=== PATIENT | female | born 1940 | race Caucasian/White ===

== ENCOUNTER 2018-10-21 06:42 | Day surgery (SDC) | payer MEDICARE, BC ==
[~2018-10-21 06:42] MED LIST: Lactated Ringers 1,000 ML IV SCH; Lidocaine 1%/Sod Bicarbonate in NS 8.4% 1 ML Syringe IDERM PRN; Sodium Chloride 0.9% 10 ML Syringe FLUSH PRN
[2018-10-21] MEDS ORDERED: Lidocaine 1% 30 ML SDV ONE (07:26)
[2018-10-21] MEDS ORDERED: Bupivacaine 0.25% 30 ML SDV ONE (07:26)
[2018-10-21] MEDS ORDERED: ceFAZolin 1 GM Vial ONE (07:26)
[2018-10-21 09:42] VITALS: BP 119/44
--- NOTE | 2018-10-26 07:42 | PCM.OPNOTE ---
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
--- NOTE | 2018-10-26 08:01 | OR ---
DATE OF OPERATION: 10/21/2018 SURGEON: Benny Olivas MD OPERATION PERFORMED: Left carpal tunnel release. PREOPERATIVE DIAGNOSIS: Left wrist median nerve compression neuropathy. POSTOPERATIVE DIAGNOSIS: Left wrist median nerve compression neuropathy. ANESTHESIA: Local only. ANESTHESIA PROVIDER: None. FINAL INSPECTOR TRUCK TRAILER: Thais Nunez PA-C ESTIMATED BLOOD LOSS: Less than 5 mL. COMPLICATIONS: None. CONDITION: Stable. DESCRIPTION OF PROCEDURE: The patient was identified in the preop holding area. Proper site was marked and identified by the surgeon. The patient was taken back to the operating theater where after adequate anesthesia, the patient's left upper extremity was sterilely prepped and draped in the usual sterile fashion. OR time-out was performed. The patient did not receive antibiotics and it is not indicated for soft tissue hand procedure. At this time, the left upper extremity was exsanguinated and an Esmarch was used as a tourniquet on the forearm. At this time, using 1% lidocaine without epinephrine and 0.25% Marcaine without epinephrine, the palmar cutaneous branch of the median nerve was anesthetized and then the incisional site was anesthetized using Kerr cardinal line and ulnar border of the fourth digit as reference. Once this had set up, an incision was made. Blunt dissection was taken down to the palmar cutaneous fascia. Palmar cutaneous fascia was incised with a [place] blade. At this time, the transverse carpal ligament was identified. A small rent was made in the transverse carpal ligament with a [place] blade under direct visualization. Resection of the transverse carpal ligament was done distally using tenotomy scissors making sure to stop short of the palmar arch. At this time, attention was turned proximally after it was found to be adequately released. Using the tenotomy scissors keeping the tips ulnar to protect the palmar cutaneous branch of the median nerve, the superficial forearm fascia as well as the transverse carpal ligament were resected proximally. It was found to be adequate release both proximally and distally. At this time, adequate saline was irrigated through the wound. 4-0 nylon sutures were used closure of the skin. The patient was placed in a sterile soft dressing and sent to PACU in stable condition. MMODAL /[id number]
== END 2018-10-21 09:25 | disposition home or self-care (01) ==
LOC: JD.SDS 06:42
PROVIDERS: ATTEND Orthopaedic Surgery
DX: G56.02 Carpal tunnel syndrome, left upper limb (principal); I10 Essential (primary) hypertension; I49.9 Cardiac arrhythmia, unspecified; I51.89 Other ill-defined heart diseases; I49.3 Ventricular premature depolarization; E78.00 Pure hypercholesterolemia, unspecified; Z79.899 Other long term (current) drug therapy; Z98.890 Other specified postprocedural states
CPT/HCPCS: 64721; 87641; J0690; J2001; J3490; J7120

== ENCOUNTER 2020-09-04 05:01 | Inpatient (IN) | payer MEDICARE, BC ==
[2020-09-04] MEDS ORDERED: Sodium Chloride 0.9% 10 ML Syringe FLUSH PRN (05:06)
[2020-09-04] MEDS ORDERED: HYDROmorphone 0.5 MG/0.5 ML Syringe IVPUSH ONE ×2 (05:13→07:08)
--- NOTE | 2020-09-04 05:13 | EDM.PDOC ---
ED HPI GENERAL MEDICAL PROBLEM - General Chief Complaint: Lower Extremity Injury/Pain Stated Complaint: [facility] Time Seen by Provider: 09/04/20 05:05 Source of Information: Reports: Patient, EMS History Limitations: Reports: No Limitations - History of Present Illness INITIAL COMMENTS - FREE TEXT/NARRATIVE: The patient presents by [facility] for a fall. She said this morning she got up to go to the bathroom and she tripped and fell and hit her head. She had no LOC. She does have a slight headache with a bump to the back of her head. She has pain to the left hip and her leg is shortened and externally rotated. She has no chest pain, shortness of breath, abdominal pain, nausea or vomiting. She has a history of hypertension. She is not on any blood thinners. Onset: Sudden Duration: Minutes: Location: Reports: Head, Lower Extremity, Left Quality: Reports: Sharp Severity: Moderate Improves with: Reports: Immobilization Worsens with: Reports: Movement Context: Reports: Trauma (tripped and fell) Associated Symptoms: Reports: Headaches. Denies: Chest Pain, Cough, Fever/Chills, Nausea/Vomiting, Shortness of Breath Left Hip Pain Score (Numeric/FACES): 4 - Related Data Allergies Allergy/AdvReac Type Severity Reaction Status Date / Time No Known Allergies Allergy Verified 09/04/20 05:05 Home Meds: Home Meds Bisoprolol/Hydrochlorothiazide [Ziac 5-6.25 MG] 1 tab PO DAILY 05/22/16 [History] Simvastatin 10 mg PO DAILY 05/22/16 [History] Past Medical History HEENT History: Reports: Impaired Vision Other HEENT History: Wears glasses Cardiovascular History: Reports: High Cholesterol, Hypertension, Other (See Below) Other Cardiovascular History: diastolic dysfunction, irregular cardiac rhythm, pvcs, varicose vein surgery Respiratory History: Reports: None Gastrointestinal History: Reports: None Genitourinary History: Reports: None MEMORIAL COUNSELOR History: Reports: None Neurological History: Reports: None Psychiatric History: Reports: None Endocrine/Metabolic History: Reports: None Hematologic History: Reports: None Immunologic History: Reports: None Oncologic (Cancer) History: Reports: None Dermatologic History: Reports: Other (See Below) Other Dermatologic History: facial rash - Past Surgical History Cardiovascular Surgical History: Reports: Varicose Neurological Surgical History: Reports: None Musculoskeletal Surgical History: Reports: Carpal Tunnel, Knee Replacement Dermatological Surgical History: Reports: None Social & Family History - Tobacco Use Tobacco Use Status *Q: Never Tobacco User - Caffeine Use Caffeine Use: Reports: Coffee, Tea - Recreational Drug Use Recreational Drug Use: No Review of Systems - Review of Systems Review Of Systems: See Below Constitutional: Reports: No Symptoms Eyes: Reports: No Symptoms Ears: Reports: No Symptoms Nose: Reports: No Symptoms Mouth/Throat: Reports: No Symptoms Respiratory: Reports: No Symptoms Cardiovascular: Reports: No Symptoms GI/Abdominal: Reports: No Symptoms Musculoskeletal: Reports: Other (Left hip pain) Neurological: Reports: Headache ED EXAM, GENERAL - Physical Exam Exam: See Below Exam Limited By: No Limitations General Appearance: Alert, No Apparent Distress Ears: Normal External Exam Nose: Normal Inspection Head: Other (Pain upon palpation with edema to the back of her head) Neck: Normal Inspection, Supple, Non-Tender Respiratory/Chest: No Respiratory Distress, Lungs Clear, Normal Breath Sounds Cardiovascular: Regular Rate, Rhythm, No Edema, No Murmur GI/Abdominal: Soft, Non-Tender, No Organomegaly, No Mass Extremities: Other (Pain upon palpation to the left hip and her leg is shortened and externally rotated. She has good sensation and pulses distally.) #1 Interpretation EKG Date: 09/04/20 Time: 05:16 Rhythm: NSR Rate (Beats/Min): 81 [place]: Normal P-Wave: Present QRS: Normal ST-T: Normal QT: Normal EKG Interpretation Comments: Ventricular bigeminy Course - Vital Signs Last Recorded V/S: Last Vital Signs Temp 97.1 F 09/04/20 05:04 Pulse 77 09/04/20 05:04 Resp 17 09/04/20 05:04 BP 193/82 H 09/04/20 05:04 Pulse Ox 97 09/04/20 05:04 - Orders/Labs/Meds Orders: Active Orders 24 hr Category Date Time Status Cardiac Monitoring [RC] . DIRECTED Care 09/04/20 05:06 Active EKG Documentation Completion [RC] STAT Care 09/04/20 05:07 Active Notify Provider Consults [RC] ASDIRECTED Care 09/04/20 06:43 Active Peripheral IV Care [RC] . DIRECTED Care 09/04/20 05:07 Active Consult to Physician [CONS] Stat Cons 09/04/20 06:42 Active Sodium Chloride 0.9% [Saline Flush] Med 09/04/20 05:06 Active 10 ml FLUSH ASDIRECTED PRN Peripheral IV Insertion Adult [OM.PC] Stat Oth 09/04/20 05:06 Ordered Medication Orders Sodium Chloride (Saline Flush) 10 ml FLUSH ASDIRECTED PRN PRN Reason: Keep Vein Open Last Admin: 09/04/20 05:24 Dose: 10 ml Documented by: IGOR Labs: Laboratory Tests 09/04/20 09/04/20 09/04/20 Range/Units 05:15 05:30 05:30 WBC 13.33 H (3.98-10.04) K/mm3 RBC 4.82 (3.98-5.22) M/mm3 Hgb 14.1 (11.2-15.7) gm/dl Hct 43.5 (34.1-44.9) % MCV 90.2 (79.4-94.8) fl MCH 29.3 (25.6-32.2) pg MCHC 32.4 (32.2-35.5) g/dl RDW Std Deviation 45.8 (36.4-46.3) fL Plt Count 196 (182-369) K/mm3 MPV 10.5 (9.4-12.3) fl Neut % (Auto) 80.2 H (34.0-71.1) % Lymph % (Auto) 10.3 L (19.3-51.7) % [place] % (Auto) 8.0 (4.7-12.5) % Eos % (Auto) 1.1 (0.7-5.8) Baso % (Auto) 0.2 (0.1-1.2) % Neut # (Auto) 10.70 H (1.56-6.13) K/mm3 Lymph # (Auto) 1.37 (1.18-3.74) K/mm3 [place] # (Auto) 1.06 H (0.24-0.36) K/mm3 Eos # (Auto) 0.14 (0.04-0.36) K/mm3 Baso # (Auto) 0.03 (0.01-0.08) K/mm3 Manual Slide Review Normal smear PT (9.7-12.0) SECONDS INR APTT (21.7-31.4) SECONDS Sodium 141 (136-145) mEq/L Potassium 4.0 (3.5-5.1) mEq/L Chloride 102 (98-107) mEq/L Carbon Dioxide 25 (21-32) mEq/L Anion Gap 18.0 H (5-15) BUN 22 H (7-18) mg/dL Creatinine 0.8 (0.55-1.02) mg/dL Est Cr Clr Drug Dosing 41.62 mL/min Estimated GFR (MDRD) > 60 (>60) mL/min BUN/Creatinine Ratio 27.5 H (14-18) Glucose 121 H (83-115) mg/dL Calcium 8.9 (8.5-10.1) mg/dL Total Bilirubin 0.4 (0.2-1.0) mg/dL AST 21 (15-37) U/L ALT 25 (14-59) U/L Alkaline Phosphatase 107 (46-116) U/L Troponin I < 0.017 (0.00-0.056) ng/mL Total Protein 7.0 (6.4-8.2) g/dl Albumin 3.4 (3.4-5.0) g/dl Globulin 3.6 gm/dL Albumin/Globulin Ratio 0.9 L (1-2) SARS-CoV-2 RNA (VILMA) Negative (NEGATIVE) 09/04/20 Range/Units 05:30 WBC (3.98-10.04) K/mm3 RBC (3.98-5.22) M/mm3 Hgb (11.2-15.7) gm/dl Hct (34.1-44.9) % MCV (79.4-94.8) fl MCH (25.6-32.2) pg MCHC (32.2-35.5) g/dl RDW Std Deviation (36.4-46.3) fL Plt Count (182-369) K/mm3 MPV (9.4-12.3) fl Neut % (Auto) (34.0-71.1) % Lymph % (Auto) (19.3-51.7) % [place] % (Auto) (4.7-12.5) % Eos % (Auto) (0.7-5.8) Baso % (Auto) (0.1-1.2) % Neut # (Auto) (1.56-6.13) K/mm3 Lymph # (Auto) (1.18-3.74) K/mm3 [place] # (Auto) (0.24-0.36) K/mm3 Eos # (Auto) (0.04-0.36) K/mm3 Baso # (Auto) (0.01-0.08) K/mm3 Manual Slide Review PT 10.9 (9.7-12.0) SECONDS INR 1.02 APTT 24.7 (21.7-31.4) SECONDS Sodium (136-145) mEq/L Potassium (3.5-5.1) mEq/L Chloride (98-107) mEq/L Carbon Dioxide (21-32) mEq/L Anion Gap (5-15) BUN (7-18) mg/dL Creatinine (0.55-1.02) mg/dL Est Cr Clr Drug Dosing mL/min Estimated GFR (MDRD) (>60) mL/min BUN/Creatinine Ratio (14-18) Glucose (83-115) mg/dL Calcium (8.5-10.1) mg/dL Total Bilirubin (0.2-1.0) mg/dL AST (15-37) U/L ALT (14-59) U/L Alkaline Phosphatase (46-116) U/L Troponin I (0.00-0.056) ng/mL Total Protein (6.4-8.2) g/dl Albumin (3.4-5.0) g/dl Globulin gm/dL Albumin/Globulin Ratio (1-2) SARS-CoV-2 RNA (VILMA) (NEGATIVE) Meds: Medications Generic Name Dose Route Start Last Admin Trade Name Freq PRN Reason Stop Dose Admin Sodium Chloride 10 ml 09/04/20 05:06 09/04/20 05:24 Saline Flush FLUSH 10 ml ASDIRECTED PRN Administration Keep Vein Open Discontinued Medications Generic Name Dose Route Start Last Admin Trade Name Freq PRN Reason Stop Dose Admin Hydromorphone HCl 0.5 mg 09/04/20 05:13 09/04/20 05:23 Dilaudid IVPUSH 09/04/20 05:14 0.5 mg ONETIME ONE Administration Hydromorphone HCl 0.5 mg 09/04/20 07:08 09/04/20 07:14 Dilaudid IVPUSH 09/04/20 07:09 0.5 mg ONETIME ONE Administration - Re-Assessments/Exams Free Text/Narrative Re-Assessment/Exam: 09/04/20 05:13 I ordered an IV saline lock, dilaudid 0.5mg IV, EKG, CT of her head, labs and an x-ray of her left hip with pelvis. 09/04/20 06:35 Her WBC was elevated at 13.33. Her anion gap was a little elevated at 18. Her BUN was elevated at 22. Her troponin was negative. Her COVID [address] of her head shows chronic age related changes but no evidence of acute intracranial pathology. The x-ray of her hip and pelvis shows an intertrochanteric fracture. I have called Dr Olivas. He asked if we could admit to the hospitalist service with him on consult. 09/04/20 07:[address] Ramírez and he agreed to the admission. Departure - Departure Time of Disposition: 07:20 Disposition: Admitted As Inpatient 65 Condition: Fair Clinical Impression: Frequent PVCs Fall Qualifiers: Encounter type: initial encounter Qualified Code(s): W19.XXXA - Unspecified fall, initial encounter Hip fracture, left Qualifiers: Encounter type: initial encounter Fracture type: closed Qualified Code(s): S72.002A - Fracture of unspecified part of neck of left femur, initial encounter for closed fracture Contusion of head Qualifiers: Encounter type: initial encounter Contusion of head detail: scalp Qualified Code(s): S00.03XA - Contusion of scalp, initial encounter - Discharge Information Referrals: PCP,Unknown [Ordering Only Provider] - Forms: ED Department Discharge Sepsis Event Note (ED) - Evaluation Sepsis Screening Result: No Definite Risk - Focused Exam Vital Signs: Vital Signs Temp Pulse Resp BP Pulse Ox 09/04/20 05:04 97.1 F 77 17 193/82 H 97 - My Orders Last 24 Hours: My Active Orders 09/04/20 05:06 Cardiac Monitoring [RC] . DIRECTED Sodium Chloride 0.9% [Saline Flush] 10 ml FLUSH ASDIRECTED PRN Peripheral IV Insertion Adult [OM.PC] Stat 09/04/20 05:07 EKG Documentation Completion [RC] STAT Peripheral IV Care [RC] . DIRECTED 09/04/20 06:42 Consult to Physician [CONS] Stat 09/04/20 06:43 Notify Provider Consults [RC] ASDIRECTED - Assessment/Plan Last 24 Hours: My Active Orders 09/04/20 05:06 Cardiac Monitoring [RC] . DIRECTED Sodium Chloride 0.9% [Saline Flush] 10 ml FLUSH ASDIRECTED PRN Peripheral IV Insertion Adult [OM.PC] Stat 09/04/20 05:07 EKG Documentation Completion [RC] STAT Peripheral IV Care [RC] . DIRECTED 09/04/20 06:42 Consult to Physician [CONS] Stat 09/04/20 06:43 Notify Provider Consults [RC] ASDIRECTED
--- NOTE | 2020-09-04 06:51 | CT ---
Head CT Technique: Multiple axial sections through the brain were obtained. Intravenous contrast was not utilized. Reconstructed coronal and sagittal images were obtained. Comparison: No prior intracranial imaging is available. Findings: Ventricles along with basal cisterns and sulci over the convexities are mildly prominent. Decreased density is noted within the periventricular and subcortical white matter which is felt compatible with small vessel ischemic demyelination change. 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 No other abnormal parenchymal densities are seen. No evidence of intracranial hemorrhage. No midline shift or mass-effect is appreciated. Atherosclerotic calcification is seen within the vertebral vessels and within the carotid siphon. Visualized mastoid sinuses and visualized paranasal sinuses showed nothing acute. No acute calvarial finding is appreciated. Impression: 1. Senescent change as noted above. 2. Nothing acute is appreciated on noncontrast head CT exam. Diagnostic code #2 I agree with preliminary report from [facility], finalized on 09/04/20, 7:21 AM EDUCATION RESEARCH ANALYST
--- NOTE | 2020-09-04 06:51 | CR ---
Pelvis and left hip: AP view of the pelvis was obtained as well as AP and crosstable lateral views of the left hip. Severe joint space narrowing is noted within both hips. Slight cystic change is noted around both hips. Osteophytes are noted off of both femoral heads. Osteopenia is present. Acute intertrochanteric fracture is noted within the left hip with mild angulation. No additional fracture or other bony abnormality is appreciated. Impression: 1. Severe degenerative change within both hips. 2. Acute and mildly angulated intertrochanteric fracture within the left hip. Diagnostic code #5
--- NOTE | 2020-09-04 07:23 | PCM.HP.2 ---
H&P History of Present Illness - General Date of Service: 09/04/20 Source of Information: Patient, Old Records, Provider, RN, RN Notes Reviewed History Limitations: Reports: No Limitations - History of Present Illness Initial Comments - Free Text/Narative: This is an 80-year-old female who presents to ED on the morning of 09/04/2020 via [facility] after a fall. She had up to use the restroom and fell hitting her head. Denies any loss of consciousness or neck pain but she does have a slight headache and a bump on the right occipital region of her head. She has pain to her left hip and left leg is noted to be externally rotated and shortened. Denies any chest pain, shortness of breath, lia pain, nausea, vomiting. She is on a baby aspirin. She reports she lives alone at home in [place]. She does have several children but [facility]. She is quite active and does work at [employer]. Twelve-lead EKG is obtained showing a sinus rhythm at 81 bpm with ventricular bigeminy. Temp is 97.1. Pulse 77. Respirations 17. Blood pressure elevated at 193/82. Pulse ox 97%. Labs are obtained showing leukocytosis at 13.33. Hemoglobin is 14.1. Platelets are 196. Neutrophils are elevated at 10.70. Sodium is 141. Potassium 4.0. Chloride 102. Carbon oxide 25. Anion gap 18.0. BUN is 22. Creatinine 0.8. GFR greater than 60. Glucose 121. Bilirubin 0.4. AST is 21, ALT 25, alkaline phosphatase 107. Troponin is less than 0.017. Albumin is 3.4. INR is 1.02. SARS-CoV-2 RNA is negative. She is given Dilaudid for pain. Head CT without contrast was obtained showing senescent cotter ge but nothing acute. Left hip x-rays obtained showing severe degenerative change within both hips. Acute and mildly angulated intertrochanteric fracture within the left hip is noted. Dr. Olivas, orthopedic surgeon is contacted by the ED provider and plan is for surgical fixation in the next 1 to 2 days. She carries a history of hypertension and hyperlipidemia. She has had her left knee replaced. Primary care provider is Dr. Machado. She subsequent admitted to the medical surgical floor inpatient on telemetry for pain management and planned surgical fixation of her left hip fracture. Left Hip Pain Score (Numeric/FACES): 4 - Related Data Allergies/Adverse Reactions: Allergies Allergy/AdvReac Type Severity Reaction Status Date / Time No Known Allergies Allergy Verified 09/04/20 05:05 Home Medications: Home Meds Bisoprolol/Hydrochlorothiazide [Ziac 5-6.25 MG] 1 tab PO DAILY 05/22/16 [History] Simvastatin 10 mg PO DAILY 05/22/16 [History] Past Medical History HEENT History: Reports: Impaired Vision Other HEENT History: Wears glasses Cardiovascular History: Reports: High Cholesterol, Hypertension, Other (See Below) Other Cardiovascular History: diastolic dysfunction, irregular cardiac rhythm, pvcs, varicose vein surgery Respiratory History: Reports: None Gastrointestinal History: Reports: None Genitourinary History: Reports: None ACREAGE REPORTER History: Reports: None Neurological History: Reports: None Psychiatric History: Reports: None Endocrine/Metabolic History: Reports: None Hematologic History: Reports: None Immunologic History: Reports: None Oncologic (Cancer) History: Reports: None Dermatologic History: Reports: Other (See Below) Other Dermatologic History: facial rash - Past Surgical History Cardiovascular Surgical History: Reports: Varicose Neurological Surgical History: Reports: None Musculoskeletal Surgical History: Reports: Carpal Tunnel, Knee Replacement Dermatological Surgical History: Reports: None Social & Family History - Tobacco Use Tobacco Use Status *Q: Never Tobacco User - Caffeine Use Caffeine Use: Reports: Coffee, Tea - Recreational Drug Use Recreational Drug Use: No H&P Review of Systems - Review of Systems: Review Of Systems: See Below General: Reports: No Symptoms. Denies: Fever, Chills, Malaise, Weakness, Fatigue HEENT: Reports: Other (Reports dry mouth; Reports prior swelling and pain to right occipatl region which has since resoleved). Denies: Headaches, Sore Throat Pulmonary: Reports: No Symptoms. Denies: Shortness of Breath, Wheezing, Pleuritic Chest Pain, Cough, Sputum Cardiovascular: Reports: No Symptoms. Denies: Chest Pain, Palpitations, Dyspnea on Exertion, Edema Gastrointestinal: Reports: No Symptoms. Denies: Abdominal Pain, Constipation, Diarrhea, Nausea, Vomiting Genitourinary: Reports: No Symptoms. Denies: Pain Musculoskeletal: Reports: Joint Pain (left hip ). Denies: Neck Pain, Shoulder Pain, Back Pain, Leg Pain, Foot Pain Skin: Reports: No Symptoms. Denies: Cyanosis Psychiatric: Reports: No Symptoms. Denies: Confusion Neurological: Reports: Difficulty Walking, Gait Disturbance. Denies: Dizziness, Headache, Numbness, Pre-Existing Deficit, Seizure, Syncope, Tingling, Trouble Speaking Hematologic/Lymphatic: Reports: No Symptoms. Denies: Anemia, Easy Bleeding Immunologic: Reports: No Symptoms Exam - Exam Exam: See Below - Vital Signs Vital Signs: Last Vital Signs Temp 97.1 F 09/04/20 05:04 Pulse 77 09/04/20 05:04 Resp 17 09/04/20 05:04 BP 193/82 H 09/04/20 05:04 Pulse Ox 97 09/04/20 05:04 Weight: 132 lb - Exam Quality Assessment: DVT Prophylaxis. No: Supplemental Oxygen, Urinary Catheter General: Alert, Oriented, Cooperative. No: Mild Distress HEENT: Conjunctiva Clear, EACs Clear, Posterior Pharynx Clear, Other. No: Mucosa Moist & [place] (mildly dry mouth ) Neck: Supple, Trachea Midline Lungs: Clear to Auscultation, Normal Respiratory Effort Cardiovascular: Regular Rate, Irregular Rhythm (Frequent PVCs ) GI/Abdominal Exam: Normal Bowel Sounds, Soft, Non-Tender, No Distention (Female) Exam: Deferred Rectal (Female) Exam: Deferred Extremities: No Pedal Edema, Normal Capillary Refill, Leg Pain (Left hip with m ovement ), Limited Range of Motion (left hip) Peripheral Pulses: 2+: Radial (L), Radial (R), Dorsalis Pedis (L), Dorsalis Pedis (R) Skin: Warm, Dry, Intact Neurological: Cranial Nerves Intact (Grossly) Neuro Extensive - Mental Status: Alert, Oriented x3, Normal Mood/Affect - Patient Data Lab Results Last 24 hrs: Laboratory Results - last 24 hr 09/04/20 09/04/20 09/04/20 Range/Units 05:15 05:30 05:30 WBC 13.33 H (3.98-10.04) K/mm3 RBC 4.82 (3.98-5.22) M/mm3 Hgb 14.1 (11.2-15.7) gm/dl Hct 43.5 (34.1-44.9) % MCV 90.2 (79.4-94.8) fl MCH 29.3 (25.6-32.2) pg MCHC 32.4 (32.2-35.5) g/dl RDW Std Deviation 45.8 (36.4-46.3) fL Plt Count 196 (182-369) K/mm3 MPV 10.5 (9.4-12.3) fl Neut % (Auto) 80.2 H (34.0-71.1) % Lymph % (Auto) 10.3 L (19.3-51.7) % [place] % (Auto) 8.0 (4.7-12.5) % Eos % (Auto) 1.1 (0.7-5.8) Baso % (Auto) 0.2 (0.1-1.2) % Neut # (Auto) 10.70 H (1.56-6.13) K/mm3 Lymph # (Auto) 1.37 (1.18-3.74) K/mm3 [place] # (Auto) 1.06 H (0.24-0.36) K/mm3 Eos # (Auto) 0.14 (0.04-0.36) K/mm3 Baso # (Auto) 0.03 (0.01-0.08) K/mm3 Manual Slide Review Normal smear PT (9.7-12.0) SECONDS INR APTT (21.7-31.4) SECONDS Sodium 141 (136-145) mEq/L Potassium 4.0 (3.5-5.1) mEq/L Chloride 102 (98-107) mEq/L Carbon Dioxide 25 (21-32) mEq/L Anion Gap 18.0 H (5-15) BUN 22 H (7-18) mg/dL Creatinine 0.8 (0.55-1.02) mg/dL Est Cr Clr Drug Dosing 41.62 mL/min Estimated GFR (MDRD) > 60 (>60) mL/min BUN/Creatinine Ratio 27.5 H (14-18) Glucose 121 H (83-115) mg/dL Calcium 8.9 (8.5-10.1) mg/dL Total Bilirubin 0.4 (0.2-1.0) mg/dL AST 21 (15-37) U/L ALT 25 (14-59) U/L Alkaline Phosphatase 107 (46-116) U/L Troponin I < 0.017 (0.00-0.056) ng/mL Total Protein 7.0 (6.4-8.2) g/dl Albumin 3.4 (3.4-5.0) g/dl Globulin 3.6 gm/dL Albumin/Globulin Ratio 0.9 L (1-2) SARS-CoV-2 RNA (VILMA) Negative (NEGATIVE) 09/04/20 Range/Units 05:30 WBC (3.98-10.04) K/mm3 RBC (3.98-5.22) M/mm3 Hgb (11.2-15.7) gm/dl Hct (34.1-44.9) % MCV (79.4-94.8) fl MCH (25.6-32.2) pg MCHC (32.2-35.5) g/dl RDW Std Deviation (36.4-46.3) fL Plt Count (182-369) K/mm3 MPV (9.4-12.3) fl Neut % (Auto) (34.0-71.1) % Lymph % (Auto) (19.3-51.7) % [place] % (Auto) (4.7-12.5) % Eos % (Auto) (0.7-5.8) Baso % (Auto) (0.1-1.2) % Neut # (Auto) (1.56-6.13) K/mm3 Lymph # (Auto) (1.18-3.74) K/mm3 [place] # (Auto) (0.24-0.36) K/mm3 Eos # (Auto) (0.04-0.36) K/mm3 Baso # (Auto) (0.01-0.08) K/mm3 Manual Slide Review PT 10.9 (9.7-12.0) SECONDS INR 1.02 APTT 24.7 (21.7-31.4) SECONDS Sodium (136-145) mEq/L Potassium (3.5-5.1) mEq/L Chloride (98-107) mEq/L Carbon Dioxide (21-32) mEq/L Anion Gap (5-15) BUN (7-18) mg/dL Creatinine (0.55-1.02) mg/dL Est Cr Clr Drug Dosing mL/min Estimated GFR (MDRD) (>60) mL/min BUN/Creatinine Ratio (14-18) Glucose (83-115) mg/dL Calcium (8.5-10.1) mg/dL Total Bilirubin (0.2-1.0) mg/dL AST (15-37) U/L ALT (14-59) U/L Alkaline Phosphatase (46-116) U/L Troponin I (0.00-0.056) ng/mL Total Protein (6.4-8.2) g/dl Albumin (3.4-5.0) g/dl Globulin gm/dL Albumin/Globulin Ratio (1-2) SARS-CoV-2 RNA (VILMA) (NEGATIVE) Result Diagrams: 09/04/20 05:30 09/04/20 05:30 Sepsis Event Note - Evaluation Sepsis Screening Result: No Definite Risk - Focused Exam Vital Signs: Vital Signs Temp Pulse Resp BP Pulse Ox 09/04/20 05:04 97.1 F 77 17 193/82 H 97 - Problem List (1) Fall SNOMED Code(s): 9689621, 733624770 ICD Code: W19.XXXA - UNSPECIFIED FALL, INITIAL ENCOUNTER Status: Acute Priority: High Current Visit: Yes Qualifiers: Encounter type: initial encounter Qualified Code(s): W19.XXXA - Unspecified fall, initial encounter (2) Hip fracture, left SNOMED Code(s): 554278209, [id number] ICD Code: S72.002A - FRACTURE OF UNSP PART OF NECK OF LEFT FEMUR, INIT Status: Acute Priority: High Current Visit: Yes Qualifiers: Encounter type: initial encounter Fracture type: closed Qualified Code(s): S72.002A - Fracture of unspecified part of neck of left femur, initial encounter for closed fracture (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: I49.3 - VENTRICULAR PREMATURE DEPOLARIZATION Status: Chronic Priority: Medium Current Visit: Yes (4) Contusion of head SNOMED Code(s): 406343420 ICD Code: S00.93XA - CONTUSION OF UNSPECIFIED PART OF HEAD, INITIAL ENCOUNTER Status: Acute Priority: High Current Visit: Yes Qualifiers: Encounter type: initial encounter Contusion of head detail: scalp Qualified Code(s): S00.03XA - Contusion of scalp, initial encounter (5) HTN (hypertension) SNOMED Code(s): 10498167 ICD Code: I10 - ESSENTIAL (PRIMARY) HYPERTENSION Status: Chronic Priority: Medium Current Visit: No Qualifiers: Hypertension type: unspecified Qualified Code(s): I10 - Essential (primary) hypertension (6) HLD (hyperlipidemia) SNOMED Code(s): 45490114 ICD Code: E78.5 - HYPERLIPIDEMIA, UNSPECIFIED Status: Chronic Priority: Low Current Visit: No Qualifiers: Hyperlipidemia type: unspecified Qualified Code(s): E78.5 - Hyperlipidemia, unspecified (7) Diastolic dysfunction SNOMED Code(s): 2145185 ICD Code: I51.89 - OTHER ILL-DEFINED HEART DISEASES Status: Chronic Priority: Medium Current Visit: Yes Problem List Initiated/Reviewed/Updated: Yes Orders Last 24hrs: Active Orders 24 hr Category Date Time Status Cardiac Monitoring [RC] . DIRECTED Care 09/04/20 05:06 Active EKG Documentation Completion [RC] STAT Care 09/04/20 05:07 Active Notify Provider Consults [RC] ASDIRECTED Care 09/04/20 06:43 Active Peripheral IV Care [RC] . DIRECTED Care 09/04/20 05:07 Active Consult to Physician [CONS] Stat Cons 09/04/20 06:42 Active Sodium Chloride 0.9% [Saline Flush] Med 09/04/20 05:06 Active 10 ml FLUSH ASDIRECTED PRN Peripheral IV Insertion Adult [OM.PC] Stat Oth 09/04/20 05:06 Ordered Medication Orders Sodium Chloride (Saline Flush) 10 ml FLUSH ASDIRECTED PRN PRN Reason: Keep Vein Open Last Admin: 09/04/20 05:24 Dose: 10 ml Documented by: IGOR Assessment/Plan Comment:: Assessment - day of admission - 09/04/20 * 80-year-old female presents to ED after fall at home * Patient reports she tripped while going to the restroom at night * Patient lives alone in her home and has no family in the state * Reports she did hit her head but denies loss of consciousness * Notes pain and edema in right occipital region in ED; resolved prior to admission * Noted to have left leg pain and leg is externally rotated and shortened. * Is on a baby aspirin at night but no other blood thinners * History of HLD, HTN, diastolic dysfunction, frequent PVCs * Twelve-lead EKG in ED shows sinus rhythm at 81 bpm with no signs of ischemia however ventricular bigeminy is noted * Labs in ED: * WBC 13.33 * Hemoglobin 14.1 * Platelet 196 * Neutrophils elevated at 10.70 * Sodium 141 * Potassium 4.0 * Anion gap 18.0 * BUN 22, creatinine 0.8, GFR greater than 60 * Glucose 121 * Bilirubin 0.4 * AST 21, ALT 25, alkaline phosphatase 107 * Troponin less than 0.017 * Albumin 3.4 * INR 1.02 * SARS-CoV-2 RNA negative * Head CT obtained in ED shows senescent change but nothing acute. * Left hip x-ray obtained in ED shows severe degenerative change within both hips and acute and mildly angulated intertrochanteric fracture within the left hip * She is given Dilaudid for pain * Dr. Olivas, orthopedic surgeon, consulted by ED provider * Admitted to medical floor for pain management and planned surgical fixation of left hip fracture; Hopeful for surgery on 09/05/20. PLAN: Fall Hip fracture, left Contusion of head * Routine labs * Check TSH * Chest X-ray given history of diastolic dysfunction * Obtain old records * Consult Dr. Olivas * SCDs and heparin for now * Famotidine daily * PT/OT after surgery * PRN colace * Pain medications as ordered * CM/SW * IS * Bedrest for now * NPO at midnight * IV fluids as ordered * Based on the data provided patient is low to moderate surgical risk Frequent PVCs HTN (hypertension) HLD (hyperlipidemia) Diastolic dysfunction * Resume/reconcile home medications once available * Telemetry * Obtain old records PCP: Dr. Machado Code status: Full code DVT prophylaxis: SCDs/Heparin - will switch to PO blood thinner post surgically Social: Patient lives at home alone. Has no family in the state Disposition: Patient admitted to [facility] with telemetry for surgical management of left hip fracture. Anticipated LOS 2-4 days. - Mortality Measure Prognosis:: Good
[2020-09-04] MEDS ORDERED: HYDROmorphone 0.5 MG/0.5 ML Syringe IVPUSH PRN (08:46)
[2020-09-04] MEDS ORDERED: Ondansetron 4 MG/2 ML SDV IV PRN (08:46)
[2020-09-04] MEDS ORDERED: Docusate Sodium 100 MG Cap PO PRN (08:55)
[2020-09-04] MEDS ORDERED: Lactated Ringers 1,000 ML IV SCH (09:00)
--- NOTE | 2020-09-04 09:26 | CR ---
Chest: Portable view of the chest was obtained. Comparison: No prior chest imaging is available. Heart is slightly enlarged. Tortuous thoracic aorta is noted. Pulmonary vessels are minimally congested. Minimal atelectasis is seen within the lateral left costophrenic angle. Degenerative change is noted within both shoulders. Impression: 1. Findings are suspicious for minimal CHF. 2. Minimal atelectasis within the left lateral costophrenic angle. 3. Other findings as noted above which are nonacute. Diagnostic code #3
[2020-09-04] MEDS: Acetaminophen/HYDROcodone 325-5 MG Tab PO PRN ×3 (09:57→18:15)
[2020-09-04] MEDS: Famotidine 20 MG Tab PO SCH (09:59)
[2020-09-04] MEDS: Heparin Sodium 5,000 Units/ML Vial SUBCUT SCH ×2 (10:00→17:18)
--- NOTE | 2020-09-04 10:58 | PCM.PREANE ---
Preanesthetic Assessment - Procedure Proposed Procedure: Left Gamma Intramedullary Nailing of Hip - Anesthesia/Transfusion/Family Hx Anesthesia History: Prior Anesthesia Without Reaction Family History of Anesthesia Reaction: No Transfusion History: No Prior Transfusion(s) Intubation History: Unknown - Review of Systems General: Fatigue Pulmonary: No Symptoms (Glass of wine three times a week.) Cardiovascular: No Symptoms (HTN, elevated cholesterol, PVC's(bigeminy), Diastolic Dysfunction) Gastrointestinal: No Symptoms Neurological: No Symptoms (Motion sickness noted with .(non noted as of lately)) Other: Reports: None (Patient placed on SQ heparin upon admission: last dose ordered for 09/05/2020 @ 0100.), Sinus Problem (AM sinus drainage), Neck Pain (neck stiffness and arthritis noted.), Depression - Physical Assessment NPO Status Date: 09/04/20 NPO Status Time: 23:59 Vital Signs: Last Vital Signs Temp 36.2 C 09/04/20 05:04 Pulse 77 09/04/20 05:04 Resp 17 09/04/20 05:04 BP 193/82 H 09/04/20 05:04 Pulse Ox 97 09/04/20 05:04 Height: 1.55 m Weight: 55.026 kg ASA Class: 3 Mental Status: Alert & Oriented x3 Airway Class: Mallampati = 2 Dentition: Reports: Normal Dentition, [place](s), Missing Tooth/Teeth, [place] Thyro-Mental Finger Breadths: 3 Mouth Opening Finger Breadths: 3 ROM/Head Extension: Limited/Partial (some neck arthritis noted.) Lungs: Clear to Auscultation, Normal Respiratory Effort Cardiovascular: Regular Rate, Regular Rhythm, No Murmurs - Lab Values: Laboratory Last Values WBC 13.33 K/mm3 (3.98-10.04) H 09/04/20 05:30 RBC 4.82 M/mm3 (3.98-5.22) 09/04/20 05:30 Hgb 14.1 gm/dl (11.2-15.7) 09/04/20 05:30 Hct 43.5 % (34.1-44.9) 09/04/20 05:30 MCV 90.2 fl (79.4-94.8) 09/04/20 05:30 MCH 29.3 pg (25.6-32.2) 09/04/20 05:30 MCHC 32.4 g/dl (32.2-35.5) 09/04/20 05:30 RDW Std Deviation 45.8 fL (36.4-46.3) 09/04/20 05:30 Plt Count 196 K/mm3 (182-369) 09/04/20 05:30 MPV 10.5 fl (9.4-12.3) 09/04/20 05:30 Neut % (Auto) 80.2 % (34.0-71.1) H 09/04/20 05:30 Lymph % (Auto) 10.3 % (19.3-51.7) L 09/04/20 05:30 [place] % (Auto) 8.0 % (4.7-12.5) 09/04/20 05:30 Eos % (Auto) 1.1 (0.7-5.8) 09/04/20 05:30 Baso % (Auto) 0.2 % (0.1-1.2) 09/04/20 05:30 Neut # (Auto) 10.70 K/mm3 (1.56-6.13) H 09/04/20 05:30 Lymph # (Auto) 1.37 K/mm3 (1.18-3.74) 09/04/20 05:30 [place] # (Auto) 1.06 K/mm3 (0.24-0.36) H 09/04/20 05:30 Eos # (Auto) 0.14 K/mm3 (0.04-0.36) 09/04/20 05:30 Baso # (Auto) 0.03 K/mm3 (0.01-0.08) 09/04/20 05:30 Manual Slide Review Normal smear 09/04/20 05:30 PT 10.9 SECONDS (9.7-12.0) 09/04/20 05:30 INR 1.02 09/04/20 05:30 APTT 24.7 SECONDS (21.7-31.4) 09/04/20 05:30 Sodium 141 mEq/L (136-145) 09/04/20 05:30 Potassium 4.0 mEq/L (3.5-5.1) 09/04/20 05:30 Chloride 102 mEq/L (98-107) 09/04/20 05:30 Carbon Dioxide 25 mEq/L (21-32) 09/04/20 05:30 Anion Gap 18.0 (5-15) H 09/04/20 05:30 BUN 22 mg/dL (7-18) H 09/04/20 05:30 Creatinine 0.8 mg/dL (0.55-1.02) 09/04/20 05:30 Est Cr Clr Drug Dosing 41.62 mL/min 09/04/20 05:30 Estimated GFR (MDRD) > 60 mL/min (>60) 09/04/20 05:30 BUN/Creatinine Ratio 27.5 (14-18) H 09/04/20 05:30 Glucose 121 mg/dL (83-115) H 09/04/20 05:30 Calcium 8.9 mg/dL (8.5-10.1) 09/04/20 05:30 Total Bilirubin 0.4 mg/dL (0.2-1.0) 09/04/20 05:30 AST 21 U/L (15-37) 09/04/20 05:30 ALT 25 U/L (14-59) 09/04/20 05:30 Alkaline Phosphatase 107 U/L (46-116) 09/04/20 05:30 Troponin I < 0.017 ng/mL (0.00-0.056) 09/04/20 05:30 Total Protein 7.0 g/dl (6.4-8.2) 09/04/20 05:30 Albumin 3.4 g/dl (3.4-5.0) 09/04/20 05:30 Globulin 3.6 gm/dL 09/04/20 05:30 Albumin/Globulin Ratio 0.9 (1-2) L 09/04/20 05:30 TSH 3rd Generation 2.622 uIU/mL (0.358-3.74) 09/04/20 05:30 SARS-CoV-2 RNA (VILMA) Negative (NEGATIVE) 09/04/20 05:15 Above labs reviewed and noted and within acceptable ranges to proceed with scheduled procedure. - Imaging/EKG Impressions: EKG: NSR rate=81, ventricular bigeminy CXR: minimal CHF, minimal atelectasis, slightly enlarged heart. - Allergies Allergies/Adverse Reactions: Allergies Allergy/AdvReac Type Severity Reaction Status Date / Time No Known Allergies Allergy Verified 09/04/20 05:05 - Anesthesia Plan Pre-Op Medication Ordered: Beta Pramod Beta Pramod: Bisoprolol Med Last Dose Date: 09/03/20 Med Last Dose Time: 09:00 - Acknowledgements Anesthesia Type Planned: General Anesthesia, Spinal Pt an Appropriate Candidate for the Planned Anesthesia: Yes Alternatives and Risks of Anesthesia Discussed w Pt/Guardian: Yes Pt/Guardian Understands and Agrees with Anesthesia Plan: Yes PreAnesthesia Questionnaire HEENT History: Reports: Impaired Vision Other HEENT History: Wears glasses Cardiovascular History: Reports: High Cholesterol, Hypertension, Other (See Below) Other Cardiovascular History: diastolic dysfunction, irregular cardiac rhythm, pvcs, varicose vein surgery Respiratory History: Reports: None Gastrointestinal History: Reports: None Genitourinary History: Reports: None PRINCIPAL CLERK History: Reports: Musculoskeletal History: Reports: None Neurological History: Reports: None Psychiatric History: Reports: None Endocrine/Metabolic History: Reports: None Hematologic History: Reports: None Immunologic History: Reports: None Oncologic (Cancer) History: Reports: None Dermatologic History: Reports: Other (See Below) Other Dermatologic History: facial rash - Infectious Disease History Infectious Disease History: Reports: None - Past Surgical History Head Surgeries/Procedures: Reports: None HEENT Surgical History: Reports: None Cardiovascular Surgical History: Reports: Varicose Respiratory Surgical History: Reports: None GI Surgical History: Reports: None Female Surgical History: Reports: None Endocrine Surgical History: Reports: None Neurological Surgical History: Reports: None Musculoskeletal Surgical History: Reports: Carpal Tunnel, Knee Replacement Oncologic Surgical History: Reports: None Dermatological Surgical History: Reports: None - SUBSTANCE USE Tobacco Use Status *Q: Never Tobacco User Tobacco Use Within Last Twelve Months: No Days Per Week of Alcohol Use: 1 Number of Drinks Per Day: 1 Total Drinks Per Week: 1 Date of Last Drink: 09/03/20 Time of Last Drink: 20:31 Recreational Drug Use History: No - HOME MEDS Home Medications: Home Meds Bisoprolol/Hydrochlorothiazide [Ziac 5-6.25 MG] 1 tab PO DAILY 05/22/16 [History] Simvastatin 10 mg PO DAILY 05/22/16 [History] Bisoprolol/Hydrochlorothiazide [Bisoprolol/HCTZ 5-6.25 MG] 5 - 6.25 mg PO DAILY 09/04/20 [History] - CURRENT (IN HOUSE) MEDS Current Meds: Current Medications Acetaminophen (Tylenol) 650 mg PO Q4H PRN PRN Reason: Pain (Mild 1-3)/fever Hydrocodone Bitart/Acetaminophen ([place] 325-5 Mg) 1 tab PO Q4H PRN PRN Reason: Pain (moderate 4-6) Last Admin: 09/04/20 09:57 Dose: 1 tab Documented by: Docusate Sodium (Colace) 100 mg PO BID PRN PRN Reason: Constipation Famotidine (Pepcid) 20 mg PO DAILY [facility] Last Admin: 09/04/20 09:59 Dose: 20 mg Documented by: Heparin Sodium (Porcine) (Heparin Sodium) 5,000 units SUBCUT Q8H [facility] Last Admin: 09/04/20 10:00 Dose: 5,000 units Documented by: Hydromorphone HCl (Dilaudid) 0.5 mg IVPUSH Q2H PRN PRN Reason: Pain (severe 7-10) Lactated Ringer's (Ringers, Lactated) 1,000 mls @ 75 mls/hr IV ASDIRECTED [facility] Stop: 09/04/20 22:19 Last Admin: 09/04/20 10:01 Dose: 75 mls/hr Documented by: Ondansetron HCl (Zofran) 4 mg IV Q6H PRN PRN Reason: Nausea/Vomiting Simvastatin (Zocor) 10 mg PO DAILY [facility] Sodium Chloride (Saline Flush) 10 ml FLUSH ASDIRECTED PRN PRN Reason: Keep Vein Open Last Admin: 09/04/20 05:24 Dose: 10 ml Documented by: Discontinued Medications Hydromorphone HCl (Dilaudid) 0.5 mg IVPUSH ONETIME ONE Stop: 09/04/20 05:14 Last Admin: 09/04/20 05:23 Dose: 0.5 mg Documented by: Hydromorphone HCl (Dilaudid) 0.5 mg IVPUSH ONETIME ONE Stop: 09/04/20 07:09 Last Admin: 09/04/20 07:14 Dose: 0.5 mg Documented by:
[2020-09-04] MEDS ORDERED: Atenolol 50 MG Tab PO SCH (11:00)
[2020-09-04] MEDS: Hydrochlorothiazide 25 MG Tab PO SCH (11:16)
[2020-09-04] MEDS: Simvastatin 10 MG Tab PO SCH (11:16)
[2020-09-04] MEDS: Acetaminophen 325 MG Tab PO PRN (21:00)
[2020-09-05] MEDS: Heparin Sodium 5,000 Units/ML Vial SUBCUT SCH (00:39)
[2020-09-05] MEDS: Acetaminophen/HYDROcodone 325-5 MG Tab PO PRN ×4 (01:24→22:20)
--- NOTE | 2020-09-05 07:21 | PCM.PN ---
- General Info Date of Service: 09/05/20 Subjective Update: In to see Marli. She reports she slept pretty good and that her pain has been controlled. She is somewhat nervous about surgery and reassurance was offered. We discussed plan for discharge and she reports that her daughter is coming from [place] to stay with her and take care of her. She reports her daughter can work remotely. There is also a plan to have a son come and switch out with the daughter. Surgery is scheduled for today. Labs continue to look good. We did change her beta-farhat to carvedilol 6.25 mg daily as she has been quite natasha cardic. She continues to have frequent PVCs. Heart rate was reportedly down to upper 30s overnight but patient was asymptomatic. Nursing reports when they palpated a pulse patient was in the mid 40s. Plan is for surgery today. Functional Status: Reports: Pain Controlled, Tolerating Diet, Urinating, Incentive Spirometry. Denies: Ambulating, New Symptoms - Review of Systems General: Reports: No Symptoms. Denies: Fever, Weakness, Fatigue, Malaise, Chills HEENT: Reports: No Symptoms. Denies: Headaches, Sore Throat Pulmonary: Reports: No Symptoms. Denies: Shortness of Breath, Cough, Sputum, Wheezing Cardiovascular: Reports: No Symptoms. Denies: Chest Pain, Palpitations, Dyspnea on Exertion, Edema Gastrointestinal: Reports: No Symptoms. Denies: Abdominal Pain, Constipation, Diarrhea, Nausea, Vomiting Genitourinary: Reports: No Symptoms. Denies: Pain Musculoskeletal: Reports: Joint Pain (left hip ). Denies: Neck Pain Skin: Reports: No Symptoms. Denies: Cyanosis Neurological: Reports: Difficulty Walking, Gait Disturbance. Denies: Confusion, Dizziness, Headache, Numbness, Tingling Psychiatric: Reports: No Symptoms - Patient Data Vitals - Most Recent: Last Vital Signs Temp 97.3 F 09/05/20 06:23 Pulse 57 L 09/05/20 06:23 Resp 16 09/05/20 06:23 BP 147/58 H 09/05/20 06:23 Pulse Ox 98 09/05/20 06:23 Weight - Most Recent: 129 lb 8 oz I&O - Last 24 Hours: Intake & Output 09/04/20 09/05/20 09/05/20 22:59 06:59 14:59 Intake Total 1335 300 Output Total 200 800 Balance 1135 -500 Lab Results Last 24 Hours: Laboratory Results - last 24 hr 09/04/20 09/04/20 09/04/20 Range/Units 05:30 10:10 10:10 WBC (3.98-10.04) K/mm3 RBC (3.98-5.22) M/mm3 Hgb (11.2-15.7) gm/dl Hct (34.1-44.9) % MCV (79.4-94.8) fl MCH (25.6-32.2) pg MCHC (32.2-35.5) g/dl RDW Std Deviation (36.4-46.3) fL Plt Count (182-369) K/mm3 MPV (9.4-12.3) fl Neut % (Auto) (34.0-71.1) % Lymph % (Auto) (19.3-51.7) % [place] % (Auto) (4.7-12.5) % Eos % (Auto) (0.7-5.8) Baso % (Auto) (0.1-1.2) % Neut # (Auto) (1.56-6.13) K/mm3 Lymph # (Auto) (1.18-3.74) K/mm3 [place] # (Auto) (0.24-0.36) K/mm3 Eos # (Auto) (0.04-0.36) K/mm3 Baso # (Auto) (0.01-0.08) K/mm3 Sodium (136-145) mEq/L Potassium (3.5-5.1) mEq/L Chloride (98-107) mEq/L Carbon Dioxide (21-32) mEq/L Anion Gap (5-15) BUN (7-18) mg/dL Creatinine (0.55-1.02) mg/dL Est Cr Clr Drug Dosing mL/min Estimated GFR (MDRD) (>60) mL/min BUN/Creatinine Ratio (14-18) Glucose (83-115) mg/dL Calcium (8.5-10.1) mg/dL Magnesium 2.0 (1.8-2.4) mg/dl Total Bilirubin (0.2-1.0) mg/dL AST (15-37) U/L ALT (14-59) U/L Alkaline Phosphatase (46-116) U/L NT-Pro-B Natriuret Pep 308 (0-450) pg/mL Total Protein (6.4-8.2) g/dl Albumin (3.4-5.0) g/dl Globulin gm/dL Albumin/Globulin Ratio (1-2) TSH 3rd Generation 2.622 (0.358-3.74) uIU/mL Urine Color (Yellow) Urine Appearance (Clear) Urine pH (5.0-8.0) Ur Specific [place] (1.005-1.030) Urine Protein (Negative) Urine Glucose (UA) (Negative) Urine Ketones (Negative) Urine Occult Blood (Negative) Urine Nitrite (Negative) Urine Bilirubin (Negative) Urine Urobilinogen (0.2-1.0) Ur Leukocyte Esterase (Negative) Urine RBC (0-5) /hpf Urine WBC (0-5) /hpf Ur Squamous Epith Cells (0-5) /hpf Urine Bacteria (FEW) /hpf Urine Mucus (FEW) /hpf MRSA (PCR) 09/04/20 09/04/20 09/05/20 Range/Units 11:23 11:55 05:18 WBC 8.72 (3.98-10.04) K/mm3 RBC 4.88 (3.98-5.22) M/mm3 Hgb 14.0 (11.2-15.7) gm/dl Hct 43.9 (34.1-44.9) % MCV 90.0 (79.4-94.8) fl MCH 28.7 (25.6-32.2) pg MCHC 31.9 L (32.2-35.5) g/dl RDW Std Deviation 45.1 (36.4-46.3) fL Plt Count 173 L (182-369) K/mm3 MPV 10.6 (9.4-12.3) fl Neut % (Auto) 72.2 H (34.0-71.1) % Lymph % (Auto) 17.3 L (19.3-51.7) % [place] % (Auto) 9.3 (4.7-12.5) % Eos % (Auto) 0.9 (0.7-5.8) Baso % (Auto) 0.2 (0.1-1.2) % Neut # (Auto) 6.29 H (1.56-6.13) K/mm3 Lymph # (Auto) 1.51 (1.18-3.74) K/mm3 [place] # (Auto) 0.81 H (0.24-0.36) K/mm3 Eos # (Auto) 0.08 (0.04-0.36) K/mm3 Baso # (Auto) 0.02 (0.01-0.08) K/mm3 Sodium (136-145) mEq/L Potassium (3.5-5.1) mEq/L Chloride (98-107) mEq/L Carbon Dioxide (21-32) mEq/L Anion Gap (5-15) BUN (7-18) mg/dL Creatinine (0.55-1.02) mg/dL Est Cr Clr Drug Dosing mL/min Estimated GFR (MDRD) (>60) mL/min BUN/Creatinine Ratio (14-18) Glucose (83-115) mg/dL Calcium (8.5-10.1) mg/dL Magnesium (1.8-2.4) mg/dl Total Bilirubin (0.2-1.0) mg/dL AST (15-37) U/L ALT (14-59) U/L Alkaline Phosphatase (46-116) U/L NT-Pro-B Natriuret Pep (0-450) pg/mL Total Protein (6.4-8.2) g/dl Albumin (3.4-5.0) g/dl Globulin gm/dL Albumin/Globulin Ratio (1-2) TSH 3rd Generation (0.358-3.74) uIU/mL Urine Color Yellow (Yellow) Urine Appearance Clear (Clear) Urine pH 6.0 (5.0-8.0) Ur Specific [place] 1.025 (1.005-1.030) Urine Protein Negative (Negative) Urine Glucose (UA) Negative (Negative) Urine Ketones Negative (Negative) Urine Occult Blood Negative (Negative) Urine Nitrite Negative (Negative) Urine Bilirubin Negative (Negative) Urine Urobilinogen 0.2 (0.2-1.0) Ur Leukocyte Esterase Negative (Negative) Urine RBC Not seen (0-5) /hpf Urine WBC 0-5 (0-5) /hpf Ur Squamous Epith Cells 0-5 (0-5) /hpf Urine Bacteria Few (FEW) /hpf Urine Mucus Few (FEW) /hpf MRSA (PCR) Negative 09/05/20 Range/Units 05:18 WBC (3.98-10.04) K/mm3 RBC (3.98-5.22) M/mm3 Hgb (11.2-15.7) gm/dl Hct (34.1-44.9) % MCV (79.4-94.8) fl MCH (25.6-32.2) pg MCHC (32.2-35.5) g/dl RDW Std Deviation (36.4-46.3) fL Plt Count (182-369) K/mm3 MPV (9.4-12.3) fl Neut % (Auto) (34.0-71.1) % Lymph % (Auto) (19.3-51.7) % [place] % (Auto) (4.7-12.5) % Eos % (Auto) (0.7-5.8) Baso % (Auto) (0.1-1.2) % Neut # (Auto) (1.56-6.13) K/mm3 Lymph # (Auto) (1.18-3.74) K/mm3 [place] # (Auto) (0.24-0.36) K/mm3 Eos # (Auto) (0.04-0.36) K/mm3 Baso # (Auto) (0.01-0.08) K/mm3 Sodium 136 (136-145) mEq/L Potassium 3.6 (3.5-5.1) mEq/L Chloride 98 (98-107) mEq/L Carbon Dioxide 27 (21-32) mEq/L Anion Gap 14.6 (5-15) BUN 19 H (7-18) mg/dL Creatinine 0.7 (0.55-1.02) mg/dL Est Cr Clr Drug Dosing 47.56 mL/min Estimated GFR (MDRD) > 60 (>60) mL/min BUN/Creatinine Ratio 27.1 H (14-18) Glucose 102 (83-115) mg/dL Calcium 9.0 (8.5-10.1) mg/dL Magnesium 1.8 (1.8-2.4) mg/dl Total Bilirubin 0.9 (0.2-1.0) mg/dL AST 24 (15-37) U/L ALT 21 (14-59) U/L Alkaline Phosphatase 101 (46-116) U/L NT-Pro-B Natriuret Pep (0-450) pg/mL Total Protein 6.7 (6.4-8.2) g/dl Albumin 3.1 L (3.4-5.0) g/dl Globulin 3.6 gm/dL Albumin/Globulin Ratio 0.9 L (1-2) TSH 3rd Generation (0.358-3.74) uIU/mL Urine Color (Yellow) Urine Appearance (Clear) Urine pH (5.0-8.0) Ur Specific [place] (1.005-1.030) Urine Protein (Negative) Urine Glucose (UA) (Negative) Urine Ketones (Negative) Urine Occult Blood (Negative) Urine Nitrite (Negative) Urine Bilirubin (Negative) Urine Urobilinogen (0.2-1.0) Ur Leukocyte Esterase (Negative) Urine RBC (0-5) /hpf Urine WBC (0-5) /hpf Ur Squamous Epith Cells (0-5) /hpf Urine Bacteria (FEW) /hpf Urine Mucus (FEW) /hpf MRSA (PCR) Med Orders - Current: Current Medications Acetaminophen (Tylenol) 650 mg PO Q4H PRN PRN Reason: Pain (Mild 1-3)/fever Last Admin: 09/04/20 21:00 Dose: 650 mg Documented by: Hydrocodone Bitart/Acetaminophen ([place] 325-5 Mg) 1 tab PO Q4H PRN PRN Reason: Pain (moderate 4-6) Last Admin: 09/05/20 06:34 Dose: 1 tab Documented by: Atenolol (Tenormin) 50 mg PO DAILY [facility] Last Admin: 09/04/20 11:14 Dose: 50 mg Documented by: Docusate Sodium (Colace) 100 mg PO BID PRN PRN Reason: Constipation Famotidine (Pepcid) 20 mg PO DAILY [facility] Last Admin: 09/04/20 09:59 Dose: 20 mg Documented by: Hydrochlorothiazide (Hydrochlorothiazide) 25 mg PO DAILY [facility] Last Admin: 09/04/20 11:16 Dose: 25 mg Documented by: Hydromorphone HCl (Dilaudid) 0.5 mg IVPUSH Q2H PRN PRN Reason: Pain (severe 7-10) Ondansetron HCl (Zofran) 4 mg IV Q6H PRN PRN Reason: Nausea/Vomiting Simvastatin (Zocor) 10 mg PO DAILY [facility] Last Admin: 09/04/20 11:16 Dose: 10 mg Documented by: Sodium Chloride (Saline Flush) 10 ml FLUSH ASDIRECTED PRN PRN Reason: Keep Vein Open Last Admin: 09/04/20 05:24 Dose: 10 ml Documented by: Discontinued Medications Heparin Sodium (Porcine) (Heparin Sodium) 5,000 units SUBCUT Q8H [facility] Stop: 09/05/20 03:00 Last Admin: 09/05/20 00:39 Dose: 5,000 units Documented by: Hydromorphone HCl (Dilaudid) 0.5 mg IVPUSH ONETIME ONE Stop: 09/04/20 05:14 Last Admin: 09/04/20 05:23 Dose: 0.5 mg Documented by: Hydromorphone HCl (Dilaudid) 0.5 mg IVPUSH ONETIME ONE Stop: 09/04/20 07:09 Last Admin: 09/04/20 07:14 Dose: 0.5 mg Documented by: Lactated Ringer's (Ringers, Lactated) 1,000 mls @ 75 mls/hr IV ASDIRECTED [facility] Stop: 09/04/20 22:19 Last Admin: 09/04/20 10:01 Dose: 75 mls/hr Documented by: - Exam Quality Assessment: DVT Prophylaxis General: Alert, Oriented, Cooperative, No Acute Distress HEENT: Pupils Equal, Pupils Reactive, Mucous Membr. Moist/[place] Neck: Supple, Trachea Midline Lungs: Clear to Auscultation, Normal Respiratory Effort Cardiovascular: Irregular Rhythm (Frequent PVCs ), Bradycardia GI/Abdominal Exam: Normal Bowel Sounds, Soft, Non-Tender, No Distention (Female) Exam: Deferred Extremities: No Pedal Edema, Leg Pain (left hip with movement ), Limited Range of Motion, Other (Left leg is shortened and externally rotated ) Peripheral Pulses: 2+: Radial (L), Radial (R), Dorsalis Pedis (L), Dorsalis Pedis (R) Skin: Warm, Dry, Intact Neurological: No New Focal Deficit Psy/Mental Status: Alert, Normal Affect, Normal Mood - Patient Data Lab Results Last 24 hrs: Laboratory Results - last 24 hr 09/04/20 09/04/20 09/04/20 Range/Units 05:30 10:10 10:10 WBC (3.98-10.04) K/mm3 RBC (3.98-5.22) M/mm3 Hgb (11.2-15.7) gm/dl Hct (34.1-44.9) % MCV (79.4-94.8) fl MCH (25.6-32.2) pg MCHC (32.2-35.5) g/dl RDW Std Deviation (36.4-46.3) fL Plt Count (182-369) K/mm3 MPV (9.4-12.3) fl Neut % (Auto) (34.0-71.1) % Lymph % (Auto) (19.3-51.7) % [place] % (Auto) (4.7-12.5) % Eos % (Auto) (0.7-5.8) Baso % (Auto) (0.1-1.2) % Neut # (Auto) (1.56-6.13) K/mm3 Lymph # (Auto) (1.18-3.74) K/mm3 [place] # (Auto) (0.24-0.36) K/mm3 Eos # (Auto) (0.04-0.36) K/mm3 Baso # (Auto) (0.01-0.08) K/mm3 Sodium (136-145) mEq/L Potassium (3.5-5.1) mEq/L Chloride (98-107) mEq/L Carbon Dioxide (21-32) mEq/L Anion Gap (5-15) BUN (7-18) mg/dL Creatinine (0.55-1.02) mg/dL Est Cr Clr Drug Dosing mL/min Estimated GFR (MDRD) (>60) mL/min BUN/Creatinine Ratio (14-18) Glucose (83-115) mg/dL Calcium (8.5-10.1) mg/dL Magnesium 2.0 (1.8-2.4) mg/dl Total Bilirubin (0.2-1.0) mg/dL AST (15-37) U/L ALT (14-59) U/L Alkaline Phosphatase (46-116) U/L NT-Pro-B Natriuret Pep 308 (0-450) pg/mL Total Protein (6.4-8.2) g/dl Albumin (3.4-5.0) g/dl Globulin gm/dL Albumin/Globulin Ratio (1-2) TSH 3rd Generation 2.622 (0.358-3.74) uIU/mL Urine Color (Yellow) Urine Appearance (Clear) Urine pH (5.0-8.0) Ur Specific [place] (1.005-1.030) Urine Protein (Negative) Urine Glucose (UA) (Negative) Urine Ketones (Negative) Urine Occult Blood (Negative) Urine Nitrite (Negative) Urine Bilirubin (Negative) Urine Urobilinogen (0.2-1.0) Ur Leukocyte Esterase (Negative) Urine RBC (0-5) /hpf Urine WBC (0-5) /hpf Ur Squamous Epith Cells (0-5) /hpf Urine Bacteria (FEW) /hpf Urine Mucus (FEW) /hpf MRSA (PCR) 09/04/20 09/04/20 09/05/20 Range/Units 11:23 11:55 05:18 WBC 8.72 (3.98-10.04) K/mm3 RBC 4.88 (3.98-5.22) M/mm3 Hgb 14.0 (11.2-15.7) gm/dl Hct 43.9 (34.1-44.9) % MCV 90.0 (79.4-94.8) fl MCH 28.7 (25.6-32.2) pg MCHC 31.9 L (32.2-35.5) g/dl RDW Std Deviation 45.1 (36.4-46.3) fL Plt Count 173 L (182-369) K/mm3 MPV 10.6 (9.4-12.3) fl Neut % (Auto) 72.2 H (34.0-71.1) % Lymph % (Auto) 17.3 L (19.3-51.7) % [place] % (Auto) 9.3 (4.7-12.5) % Eos % (Auto) 0.9 (0.7-5.8) Baso % (Auto) 0.2 (0.1-1.2) % Neut # (Auto) 6.29 H (1.56-6.13) K/mm3 Lymph # (Auto) 1.51 (1.18-3.74) K/mm3 [place] # (Auto) 0.81 H (0.24-0.36) K/mm3 Eos # (Auto) 0.08 (0.04-0.36) K/mm3 Baso # (Auto) 0.02 (0.01-0.08) K/mm3 Sodium (136-145) mEq/L Potassium (3.5-5.1) mEq/L Chloride (98-107) mEq/L Carbon Dioxide (21-32) mEq/L Anion Gap (5-15) BUN (7-18) mg/dL Creatinine (0.55-1.02) mg/dL Est Cr Clr Drug Dosing mL/min Estimated GFR (MDRD) (>60) mL/min BUN/Creatinine Ratio (14-18) Glucose (83-115) mg/dL Calcium (8.5-10.1) mg/dL Magnesium (1.8-2.4) mg/dl Total Bilirubin (0.2-1.0) mg/dL AST (15-37) U/L ALT (14-59) U/L Alkaline Phosphatase (46-116) U/L NT-Pro-B Natriuret Pep (0-450) pg/mL Total Protein (6.4-8.2) g/dl Albumin (3.4-5.0) g/dl Globulin gm/dL Albumin/Globulin Ratio (1-2) TSH 3rd Generation (0.358-3.74) uIU/mL Urine Color Yellow (Yellow) Urine Appearance Clear (Clear) Urine pH 6.0 (5.0-8.0) Ur Specific [place] 1.025 (1.005-1.030) Urine Protein Negative (Negative) Urine Glucose (UA) Negative (Negative) Urine Ketones Negative (Negative) Urine Occult Blood Negative (Negative) Urine Nitrite Negative (Negative) Urine Bilirubin Negative (Negative) Urine Urobilinogen 0.2 (0.2-1.0) Ur Leukocyte Esterase Negative (Negative) Urine RBC Not seen (0-5) /hpf Urine WBC 0-5 (0-5) /hpf Ur Squamous Epith Cells 0-5 (0-5) /hpf Urine Bacteria Few (FEW) /hpf Urine Mucus Few (FEW) /hpf MRSA (PCR) Negative 09/05/20 Range/Units 05:18 WBC (3.98-10.04) K/mm3 RBC (3.98-5.22) M/mm3 Hgb (11.2-15.7) gm/dl Hct (34.1-44.9) % MCV (79.4-94.8) fl MCH (25.6-32.2) pg MCHC (32.2-35.5) g/dl RDW Std Deviation (36.4-46.3) fL Plt Count (182-369) K/mm3 MPV (9.4-12.3) fl Neut % (Auto) (34.0-71.1) % Lymph % (Auto) (19.3-51.7) % [place] % (Auto) (4.7-12.5) % Eos % (Auto) (0.7-5.8) Baso % (Auto) (0.1-1.2) % Neut # (Auto) (1.56-6.13) K/mm3 Lymph # (Auto) (1.18-3.74) K/mm3 [place] # (Auto) (0.24-0.36) K/mm3 Eos # (Auto) (0.04-0.36) K/mm3 Baso # (Auto) (0.01-0.08) K/mm3 Sodium 136 (136-145) mEq/L Potassium 3.6 (3.5-5.1) mEq/L Chloride 98 (98-107) mEq/L Carbon Dioxide 27 (21-32) mEq/L Anion Gap 14.6 (5-15) BUN 19 H (7-18) mg/dL Creatinine 0.7 (0.55-1.02) mg/dL Est Cr Clr Drug Dosing 47.56 mL/min Estimated GFR (MDRD) > 60 (>60) mL/min BUN/Creatinine Ratio 27.1 H (14-18) Glucose 102 (83-115) mg/dL Calcium 9.0 (8.5-10.1) mg/dL Magnesium 1.8 (1.8-2.4) mg/dl Total Bilirubin 0.9 (0.2-1.0) mg/dL AST 24 (15-37) U/L ALT 21 (14-59) U/L Alkaline Phosphatase 101 (46-116) U/L NT-Pro-B Natriuret Pep (0-450) pg/mL Total Protein 6.7 (6.4-8.2) g/dl Albumin 3.1 L (3.4-5.0) g/dl Globulin 3.6 gm/dL Albumin/Globulin Ratio 0.9 L (1-2) TSH 3rd Generation (0.358-3.74) uIU/mL Urine Color (Yellow) Urine Appearance (Clear) Urine pH (5.0-8.0) Ur Specific [place] (1.005-1.030) Urine Protein (Negative) Urine Glucose (UA) (Negative) Urine Ketones (Negative) Urine Occult Blood (Negative) Urine Nitrite (Negative) Urine Bilirubin (Negative) Urine Urobilinogen (0.2-1.0) Ur Leukocyte Esterase (Negative) Urine RBC (0-5) /hpf Urine WBC (0-5) /hpf Ur Squamous Epith Cells (0-5) /hpf Urine Bacteria (FEW) /hpf Urine Mucus (FEW) /hpf MRSA (PCR) Result Diagrams: 09/05/20 05:18 09/05/20 05:18 Sepsis Event Note - Evaluation Sepsis Screening Result: No Definite Risk - Focused Exam Vital Signs: Vital Signs Temp Pulse Pulse Resp BP Pulse Ox 09/05/20 06:23 97.3 F 57 L 16 147/58 H 98 09/05/20 04:30 48 L 09/05/20 00:36 35 L 16 120/57 L 97 09/04/20 20:30 97.3 F 34 L 16 149/51 H 94 L - Problem List & Annotations (1) Fall SNOMED Code(s): 9149376, 166596914 Code(s): W19.XXXA - UNSPECIFIED FALL, INITIAL ENCOUNTER Status: Acute Priority: High Current Visit: Yes Qualifiers: Encounter type: initial encounter Qualified Code(s): W19.XXXA - Unspecified fall, initial encounter (2) Hip fracture, left SNOMED Code(s): 515002918, 98669638819468214 Code(s): S72.002A - FRACTURE OF UNSP PART OF NECK OF LEFT FEMUR, INIT Status: Acute Priority: High Current Visit: Yes Qualifiers: Encounter type: initial encounter Fracture type: closed Qualified Code(s): S72.002A - Fracture of unspecified part of neck of left femur, initial encounter for closed fracture (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 Status: Chronic Priority: Medium Current Visit: Yes (4) Contusion of head SNOMED Code(s): 972293283 Code(s): S00.93XA - CONTUSION OF UNSPECIFIED PART OF HEAD, INITIAL ENCOUNTER Status: Acute Priority: High Current Visit: Yes Qualifiers: Encounter type: initial encounter Contusion of head detail: scalp Q ualified Code(s): S00.03XA - Contusion of scalp, initial encounter (5) HTN (hypertension) SNOMED Code(s): 33427775 Code(s): I10 - ESSENTIAL (PRIMARY) HYPERTENSION Status: Chronic Priority: Medium Current Visit: No Qualifiers: Hypertension type: unspecified Qualified Code(s): I10 - Essential (primary) hypertension (6) HLD (hyperlipidemia) SNOMED Code(s): 18612279 Code(s): E78.5 - HYPERLIPIDEMIA, UNSPECIFIED Status: Chronic Priority: Low Current Visit: No Qualifiers: Hyperlipidemia type: unspecified Qualified Code(s): E78.5 - Hyperlipidemia, unspecified (7) Diastolic dysfunction SNOMED Code(s): 8383945 Code(s): I51.89 - OTHER ILL-DEFINED HEART DISEASES Status: Chronic Priority: Medium Current Visit: Yes (8) Bradycardia SNOMED Code(s): 18226892 Code(s): R00.1 - BRADYCARDIA, UNSPECIFIED Status: Acute Priority: High Current Visit: Yes - Problem List Review Problem List Initiated/Reviewed/Updated: Yes - My Orders Last 24 Hours: My Active Orders 09/04/20 08:45 Patient Status [ADT] Routine 09/04/20 08:46 Bedrest Bathroom Privileges [RC] ASDIRECTED Height and Weight [RC] 0600 Intake and Output [RC] 04,16 Oxygen Therapy [RC] PRN Pulse Oximetry [RC] PRN VTE/DVT Education [RC] 1000 Vital Signs [RC] Q4HR Consult to Case Management/[employer] Operator [CONS] Routine Consult to Spiritual Care [CONS] Routine Acetaminophen [TylenoL] 650 mg PO Q4H PRN Acetaminophen/HYDROcodone [[place] 325-5 MG] 1 tab PO Q4H PRN HYDROmorphone [Dilaudid] 0.5 mg IVPUSH Q2H PRN Ondansetron [Zofran] 4 mg IV Q6H PRN Sequential Compression Device [OM.PC] Per Unit Routine 09/04/20 08:48 Antiembolic Devices [RC] BID 09/04/20 08:50 RT Incentive Spirometry [RC] ASDIRECTED 09/04/20 08:55 Docusate Sodium [Colace] 100 mg PO BID PRN 09/04/20 09:00 Famotidine [Pepcid] 20 mg PO DAILY 09/04/20 09:40 Code Status [Resuscitation Status] Routine 09/04/20 10:00 Simvastatin [Zocor] 10 mg PO DAILY 09/04/20 11:00 atenoloL [Tenormin] 50 mg PO DAILY hydroCHLOROthiazide 25 mg PO DAILY 09/04/20 12:15 Communication Order [RC] 09/05/20 Breakfast NPO After Midnight [Nothing per Oral After Midnight Diet] [DIET] 09/05/20 07:15 Consult to Occupational Therapy [OT Evaluation and Treatment] [CONS] Routine PT Evaluation and Treatment [CONS] Routine 09/06/20 05:11 CBC WITH AUTO DIFF [HEME] AM CMP [COMPREHENSIVE METABOLIC PN,CMP] [CHEM] AM MAGNESIUM [CHEM] AM 09/07/20 05:11 CBC WITH AUTO DIFF [HEME] AM CMP [COMPREHENSIVE METABOLIC PN,CMP] [CHEM] AM MAGNESIUM [CHEM] AM 09/08/20 05:11 CBC WITH AUTO DIFF [HEME] AM CMP [COMPREHENSIVE METABOLIC PN,CMP] [CHEM] AM MAGNESIUM [CHEM] AM - Assessment Assessment:: Assessment - day of admission - 09/04/20 * 80-year-old female presents to ED after fall at home * Patient reports she tripped while going to the restroom at night * Patient lives alone in her home and has no family in the state * Reports she did hit her head but denies loss of consciousness * Notes pain and edema in right occipital region in ED; resolved prior to admission * Noted to have left leg pain and leg is externally rotated and shortened. * Is on a baby aspirin at night but no other blood thinners * History of HLD, HTN, diastolic dysfunction, frequent PVCs * Twelve-lead EKG in ED shows sinus rhythm at 81 bpm with no signs of ischemia however ventricular bigeminy is noted * Labs in ED: * WBC 13.33 * Hemoglobin 14.1 * Platelet 196 * Neutrophils elevated at 10.70 * Sodium 141 * Potassium 4.0 * Anion gap 18.0 * BUN 22, creatinine 0.8, GFR greater than 60 * Glucose 121 * Bilirubin 0.4 * AST 21, ALT 25, alkaline phosphatase 107 * Troponin less than 0.017 * Albumin 3.4 * INR 1.02 * SARS-CoV-2 RNA negative * Head CT obtained in ED shows senescent change but nothing acute. * Left hip x-ray obtained in ED shows severe degenerative change within both hips and acute and mildly angulated intertrochanteric fracture within the left hip * She is given Dilaudid for pain * Dr. Olivas, orthopedic surgeon, consulted by ED provider * Admitted to medical floor for pain management and planned surgical fixation of left hip fracture; Hopeful for surgery on 09/05/20. 09/05/20 * Plan for surgery today with Dr. Olivas * Reports slept pretty good and pain is controlled. * Echo obtained on 09/04/2020: * 1. Left ventricular ejection fraction, by visual estimation, is 60-65%. * 2. Mild concentric left ventricular hypertrophy. * 3. Normal right ventricular systolic function. * 4. No aortic valve stenosis. * 5. There is mild aortic valve sclerosis without stenosis. * 6. Mild mitral valve regurgitation. * 7. The right ventricular systolic pressure is moderately elevated at 51.8 mmHg. * 8. No regional wall motion abnormalities * Chest x-ray obtained on admission shows findings suspicious for minimal CHF and left-sided atelectasis. Other nonacute findings are also noted. * Labs today: * WBC 8.72. * Hemoglobin 14.0 * Platelet 173 * Neutrophils 6.29 * Sodium 136 * Potassium 3.6 * Carbon oxide 27 * Anion gap 14.6. * BUN 19, Creatinine 0.7, GFR greater than 60 * Glucose 102 * Magnesium 1.8 * Albumin 3.1 * proBNP obtained yesterday is 308 * TSH obtained yesterday is 2.622 * Resume heart healthy diet after surgery * PT/OT ordered for after surgery * Discharge plan will be pending how patient does with PT/OT and if she can arrange family to stay with her. - Plan Plan:: Fall Hip fracture, left Contusion of head * Routine labs * Consult Dr. Olivas * SCDs and heparin for now * Famotidine daily * PT/OT after surgery * PRN colace * Pain medications as ordered * CM/SW * IS * Bedrest for now; Up with assistance after surgery * NPO at midnight; Resume heart healthy diet after surgery * Based on the data provided patient is low to moderate surgical risk Bradycardia Frequent PVCs HTN (hypertension) HLD (hyperlipidemia) Diastolic dysfunction * Resume/reconcile home medications * Discontinue 50mg Atenolol (substitute for bisoprolol) and start Coreg 6.25mg BID * Telemetry * Obtain old records PCP: Dr. Machado Code status: Full code DVT prophylaxis: SCDs/Heparin - will switch to PO blood thinner post surgically Social: Patient lives at home alone. Has no family in the state Disposition: Patient admitted to [facility] with telemetry for surgical management of left hip fracture. Anticipated LOS 2-4 days.
[2020-09-05] MEDS ORDERED: Magnesium Sulfate/Water 2 GM/50 ML BAG IV ONE (08:00)
[2020-09-05] MEDS: Hydrochlorothiazide 25 MG Tab PO SCH (08:53)
[2020-09-05] MEDS: Famotidine 20 MG Tab PO SCH (08:54)
[2020-09-05] MEDS: Carvedilol 6.25 MG Tab PO SCH ×2 (08:54→20:57)
[2020-09-05] MEDS: Simvastatin 10 MG Tab PO SCH (08:55)
[2020-09-05] MEDS: Acetaminophen 325 MG Tab PO PRN (09:26)
[2020-09-05] MEDS ORDERED: Ketamine 500 mg/10 ML MDV ONE (10:47)
[2020-09-05] MEDS ORDERED: Midazolam 1 MG/ML 2 ML SDV ONE (10:47)
[2020-09-05] MEDS ORDERED: fentaNYL 100 MCG/2 ML SDV ONE (10:47)
[2020-09-05] MEDS ORDERED: Bupivacaine 0.25% 10 ML SDV ONE (10:50)
[2020-09-05] MEDS ORDERED: Propofol 200 MG/20 ML SDV ONE (10:53)
[2020-09-05] MEDS ORDERED: ceFAZolin 1 GM Vial ONE (10:58)
[2020-09-05] MEDS ORDERED: Lidocaine 1% 4 ML ONE (11:12)
[2020-09-05] MEDS ORDERED: Ondansetron 4 MG/2 ML SDV ONE (11:28)
[2020-09-05] MEDS ORDERED: ePHEDrine 50 MG/ML SDV ONE (11:56)
--- NOTE | 2020-09-05 13:17 | CR ---
Left hip: Multiple fluoroscopic spot views were obtained of the left hip utilizing C-arm device in the operating room. Comparison: Prior pelvis and hip study of 09/04/20. Study shows placement of compression screw and short intramedullary herman affixing previous left hip intertrochanteric fracture. Fluoroscopy time is 70.9 seconds. Impression: 1. Procedural study as noted above. Diagnostic code #2
--- NOTE | 2020-09-05 13:21 | PCM.POSTAN ---
POST ANESTHESIA ASSESSMENT - MENTAL STATUS Mental Status: Alert, Oriented - VITAL SIGNS Vital Signs: Last Vital Signs Temp 97.6 F 09/05/20 13:11 Pulse 57 L 09/05/20 13:11 Resp 12 09/05/20 13:11 BP 135/60 09/05/20 13:11 Pulse Ox 99 09/05/20 13:11 - RESPIRATORY Respiratory Status: Respiratory Rate WNL, Airway Patent, O2 Saturation Stable, Supplemental Oxygen - CARDIOVASCULAR CV Status: Pulse Rate WNL, Blood Pressure Stable - GASTROINTESTINAL GI Status: No Symptoms - PAIN Pain Score: 0 (post SAB) - POST OP HYDRATION Hydration Status: Adequate & Stable
--- NOTE | 2020-09-05 14:06 | PCM.OPNOTE ---
- General Post-Op/Procedure Note Date of Surgery/Procedure: 09/05/20 Operative Procedure(s): cephallomedullary nailing of left intertrochanteric hip fracture Pre Op Diagnosis: left intertrochanteric hip fracture Post-Op Diagnosis: Same Anesthesia Technique: MAC, Spinal Primary Surgeon: Benny Olivas Anesthesia Provider: Nikhil Costa Mica Laminating Machine Feeder: Thais Nunez EBL in mLs: 50 Complications: None Condition: Good Free Text/Narrative:: Intake & Output 09/04/20 09/05/20 09/05/20 22:59 06:59 14:59 Intake Total 1515 300 130 Output Total 200 800 Balance 1315 -500 130
--- NOTE | 2020-09-05 15:14 | CR ---
Left femur: AP and lateral views of the left femur were obtained. Comparison: Prior pelvis and left hip exam of 09/04/20. Previous intertrochanteric fracture has been reduced and affixed with compression screw and short intramedullary herman. Skin finesse are present. Soft tissue air is noted from the surgical procedure. Left knee prosthesis is noted. Severe joint space narrowing is noted within the left hip. Vascular calcification is noted. No additional abnormality is appreciated. Impression: 1. Satisfactory appearance of recently placed hardware for left hip fracture. 2. Other findings as noted above which are chronic. Diagnostic code #2
[2020-09-05] MEDS ORDERED: Sodium Chloride 0.9% 500 ML IV ONE (16:45)
[2020-09-05] MEDS: ceFAZolin 2 GM in Premix Bag 1 BAG IV SCH (18:22)
[2020-09-06] MEDS: ceFAZolin 2 GM in Premix Bag 1 BAG IV SCH ×2 (02:00→11:20)
[2020-09-06] MEDS: Acetaminophen/HYDROcodone 325-5 MG Tab PO PRN ×3 (05:16→17:30)
[2020-09-06] MEDS ORDERED: Aspirin 325 MG Tab.EC PO SCH (09:00)
[2020-09-06] MEDS: Hydrochlorothiazide 25 MG Tab PO SCH (09:09)
[2020-09-06] MEDS: Simvastatin 10 MG Tab PO SCH (09:09)
[2020-09-06] MEDS: Carvedilol 6.25 MG Tab PO SCH ×2 (09:09→21:46)
[2020-09-06] MEDS: Famotidine 20 MG Tab PO SCH (09:09)
[2020-09-06] MEDS: Enoxaparin 40 MG/0.4 ML Syringe SUBCUT SCH (09:11)
[2020-09-06] MEDS ORDERED: Magnesium Sulfate/Water 2 GM/50 ML BAG IV ONE (10:56)
--- NOTE | 2020-09-06 11:25 | PCM.PN ---
- General Info Date of Service: 09/06/20 Subjective Update: In to see Marli. She is sitting up in the chair and doing pretty well. She has been up walking with therapies and nursing. Labs and vital signs remain stable. Her HR has improved significantly and she has had less frequent PVCs. Her pain has been mostly controlled. Discussed VTE prophylaxis with Dr. Ramírez and ortho team. Will start daily 325mg ASA at discharge and continue Lovenox until then. Patient would like SNF placement for a rehab stay and PT/OT are in agreement with this plan. She is not requiring oxygen. She continues to utilize her IS. Plan for discharge in next 24-48 hours pending placement. Functional Status: Reports: Pain Controlled, Tolerating Diet, Ambulating, Urinating, Incentive Spirometry. Denies: New Symptoms - Review of Systems General: Reports: Weakness. Denies: Fever, Fatigue, Malaise, Chills HEENT: Reports: No Symptoms. Denies: Headaches, Visual Changes Pulmonary: Reports: No Symptoms. Denies: Shortness of Breath, Cough, Sputum, Wheezing Cardiovascular: Reports: No Symptoms. Denies: Chest Pain, Palpitations, Dyspnea on Exertion Gastrointestinal: Reports: No Symptoms. Denies: Abdominal Pain, Constipation, Diarrhea, Nausea, Vomiting Genitourinary: Reports: No Symptoms. Denies: Pain Musculoskeletal: Reports: Leg Pain (left ), Joint Pain (left ) Skin: Reports: No Symptoms. Denies: Cyanosis Neurological: Reports: Difficulty Walking, Weakness, Gait Disturbance. Denies: Confusion Psychiatric: Reports: No Symptoms - Patient Data Vitals - Most Recent: Last Vital Signs Temp 97.9 F 09/06/20 07:35 Pulse 70 09/06/20 09:09 Resp 18 09/06/20 07:35 BP 119/57 L 09/06/20 09:09 Pulse Ox 97 09/06/20 08:00 Weight - Most Recent: 131 lb 11.2 oz I&O - Last 24 Hours: Intake & Output 09/05/20 09/06/20 09/06/20 22:59 06:59 14:59 Intake Total 910 1245 Output Total 200 800 Balance 710 445 Lab Results Last 24 Hours: Laboratory Results - last 24 hr 09/06/20 09/06/20 Range/Units 06:22 06:22 WBC 9.24 (3.98-10.04) K/mm3 RBC 4.33 (3.98-5.22) M/mm3 Hgb 12.4 D (11.2-15.7) gm/dl Hct 39.1 (34.1-44.9) % MCV 90.3 (79.4-94.8) fl MCH 28.6 (25.6-32.2) pg MCHC 31.7 L (32.2-35.5) g/dl RDW Std Deviation 43.9 (36.4-46.3) fL Plt Count 174 L (182-369) K/mm3 MPV 10.1 (9.4-12.3) fl Neut % (Auto) 80.1 H (34.0-71.1) % Lymph % (Auto) 8.8 L (19.3-51.7) % Jennings % (Auto) 10.7 (4.7-12.5) % Eos % (Auto) 0.2 L (0.7-5.8) Baso % (Auto) 0.1 (0.1-1.2) % Neut # (Auto) 7.40 H (1.56-6.13) K/mm3 Lymph # (Auto) 0.81 L (1.18-3.74) K/mm3 Jennings # (Auto) 0.99 H (0.24-0.36) K/mm3 Eos # (Auto) 0.02 L (0.04-0.36) K/mm3 Baso # (Auto) 0.01 (0.01-0.08) K/mm3 Manual Slide Review Abnormal smear Sodium 133 L (136-145) mEq/L Potassium 4.1 (3.5-5.1) mEq/L Chloride 97 L (98-107) mEq/L Carbon Dioxide 28 (21-32) mEq/L Anion Gap 12.1 (5-15) BUN 12 (7-18) mg/dL Creatinine 0.7 (0.55-1.02) mg/dL Est Cr Clr Drug Dosing 47.56 mL/min Estimated GFR (MDRD) > 60 (>60) mL/min BUN/Creatinine Ratio 17.1 (14-18) Glucose 138 H (83-115) mg/dL Calcium 8.5 (8.5-10.1) mg/dL Magnesium 1.8 (1.8-2.4) mg/dl Total Bilirubin 0.6 (0.2-1.0) mg/dL AST 22 (15-37) U/L ALT 22 (14-59) U/L Alkaline Phosphatase 87 (46-116) U/L Total Protein 6.1 L (6.4-8.2) g/dl Albumin 2.6 L (3.4-5.0) g/dl Globulin 3.5 gm/dL Albumin/Globulin Ratio 0.7 L (1-2) Med Orders - Current: Current Medications Acetaminophen (Tylenol) 650 mg PO Q4H PRN PRN Reason: Pain (Mild 1-3)/fever Last Admin: 09/05/20 09:26 Dose: 650 mg Documented by: Hydrocodone Bitart/Acetaminophen ([place] 325-5 Mg) 1 tab PO Q4H PRN PRN Reason: Pain (moderate 4-6) Last Admin: 09/06/20 09:16 Dose: 1 tab Documented by: Carvedilol (Coreg) 6.25 mg PO BID [facility] Last Admin: 09/06/20 09:09 Dose: 6.25 mg Documented by: Docusate Sodium (Colace) 100 mg PO BID PRN PRN Reason: Constipation Enoxaparin Sodium (Lovenox) 40 mg SUBCUT DAILY [facility] Last Admin: 09/06/20 09:11 Dose: 40 mg Documented by: Famotidine (Pepcid) 20 mg PO DAILY [facility] Last Admin: 09/06/20 09:09 Dose: 20 mg Documented by: Hydrochlorothiazide (Hydrochlorothiazide) 25 mg PO DAILY [facility] Last Admin: 09/06/20 09:09 Dose: 25 mg Documented by: Hydromorphone HCl (Dilaudid) 0.5 mg IVPUSH Q2H PRN PRN Reason: Pain (severe 7-10) Last Admin: 09/05/20 10:03 Dose: 0.5 mg Documented by: Cefazolin Sodium/Dextrose 2 gm (/ Premix) 50 mls @ 100 mls/hr IV Q8H [facility] Stop: 09/06/20 11:29 Last Admin: 09/06/20 02:00 Dose: 100 mls/hr Documented by: Magnesium Sulfate (Magnesium Sulfate In Water 2 Gm/50 Ml) 2 gm in 50 mls @ 25 mls/hr IV ONETIME ONE Stop: 09/06/20 12:55 Ondansetron HCl (Zofran) 4 mg IV Q6H PRN PRN Reason: Nausea/Vomiting Simvastatin (Zocor) 10 mg PO DAILY [facility] Last Admin: 09/06/20 09:09 Dose: 10 mg Documented by: Sodium Chloride (Saline Flush) 10 ml FLUSH ASDIRECTED PRN PRN Reason: Keep Vein Open Last Admin: 09/04/20 05:24 Dose: 10 ml Documented by: Discontinued Medications Aspirin (Ecotrin) 325 mg PO BID [facility] Atenolol (Tenormin) 50 mg PO DAILY [facility] Last Admin: 09/04/20 11:14 Dose: 50 mg Documented by: Bupivacaine HCl (Sensorcaine-Mpf 0.25%) Confirm Administered Dose 20 ml .ROUTE .STK-MED ONE Stop: 09/05/20 10:51 Last Admin: 09/05/20 12:55 Dose: 20 ml Documented by: Cefazolin Sodium (Ancef) Confirm Administered Dose 1 gm .ROUTE .STK-MED ONE Stop: 09/05/20 10:59 Ephedrine Sulfate (Ephedrine Sulfate) Confirm Administered Dose 50 mg .ROUTE .STK-MED ONE Stop: 09/05/20 11:57 Fentanyl (Sublimaze) Confirm Administered Dose 100 mcg .ROUTE .STK-MED ONE Stop: 09/05/20 10:48 Glycopyrrolate (Robinul) Confirm Administered Dose 0.4 mg .ROUTE .STK-MED ONE Stop: 09/05/20 11:34 Heparin Sodium (Porcine) (Heparin Sodium) 5,000 units SUBCUT Q8H [facility] Stop: 09/05/20 03:00 Last Admin: 09/05/20 00:39 Dose: 5,000 units Documented by: Hydromorphone HCl (Dilaudid) 0.5 mg IVPUSH ONETIME ONE Stop: 09/04/20 05:14 Last Admin: 09/04/20 05:23 Dose: 0.5 mg Documented by: Hydromorphone HCl (Dilaudid) 0.5 mg IVPUSH ONETIME ONE Stop: 09/04/20 07:09 Last Admin: 09/04/20 07:14 Dose: 0.5 mg Documented by: Lactated Ringer's (Ringers, Lactated) 1,000 mls @ 75 mls/hr IV ASDIRECTED KEVIN Stop: 09/04/20 22:19 Last Admin: 09/04/20 10:01 Dose: 75 mls/hr Documented by: Magnesium Sulfate (Magnesium Sulfate In Water 2 Gm/50 Ml) 2 gm in 50 mls @ 25 mls/hr IV ONETIME ONE Stop: 09/05/20 09:59 Last Admin: 09/05/20 08:53 Dose: 25 mls/hr Documented by: Lidocaine HCl (Xylocaine-Mpf 1%) Confirm Administered Dose 4 mls @ as directed .ROUTE .STK-MED ONE Stop: 09/05/20 11:13 Sodium Chloride (Normal Saline) 500 mls @ 50 mls/hr IV ASDIRECTED ONE Stop: 09/06/20 02:44 Last Admin: 09/05/20 16:44 Dose: 50 mls/hr Documented by: Ketamine HCl (Ketalar) Confirm Administered Dose 500 mg .ROUTE .STK-MED ONE Stop: 09/05/20 10:48 Midazolam HCl (Versed 1 Mg/Ml) Confirm Administered Dose 2 mg .ROUTE .STK-MED ONE Stop: 09/05/20 10:48 Miscellaneous Medication (Phenylephrine 1 Mg/10 Ml-Ns) Confirm Administered Dose 1 mg .ROUTE .STK-MED ONE Stop: 09/05/20 12:41 Ondansetron HCl (Zofran) Confirm Administered Dose 4 mg .ROUTE .STK-MED ONE Stop: 09/05/20 11:29 Propofol (Diprivan 20 Ml) Confirm Administered Dose 200 mg .ROUTE .STK-MED ONE Stop: 09/05/20 10:54 - Exam Quality Assessment: DVT Prophylaxis. No: Supplemental Oxygen, Urine Catheter General: Alert, Oriented, Cooperative, No Acute Distress HEENT: Pupils Equal, Pupils Reactive, Mucous Membr. Moist/Leary Neck: Supple, Trachea Midline Lungs: Clear to Auscultation, Normal Respiratory Effort Cardiovascular: Regular Rate, Regular Rhythm (occasional PVC) GI/Abdominal Exam: Normal Bowel Sounds, Soft, Non-Tender, No Distention, No Abnormal Bruit (Female) Exam: Deferred Back Exam: Normal Inspection, Full Range of Motion Extremities: Normal Capillary Refill, Leg Pain (left leg and hip ), Limited Range of Motion, Other (Bandage in place on left leg at incision sites. Cooling pack in place. ) Peripheral Pulses: 2+: Radial (L), Radial (R), Dorsalis Pedis (L), Dorsalis Pedis (R) Skin: Warm, Dry, Intact Wound/Incisions: Dressing Dry and Intact Neurological: No New Focal Deficit Psy/Mental Status: Alert, Normal Affect, Normal Mood - Patient Data Lab Results Last 24 hrs: Laboratory Results - last 24 hr 09/06/20 09/06/20 Range/Units 06:22 06:22 WBC 9.24 (3.98-10.04) K/mm3 RBC 4.33 (3.98-5.22) M/mm3 Hgb 12.4 D (11.2-15.7) gm/dl Hct 39.1 (34.1-44.9) % MCV 90.3 (79.4-94.8) fl MCH 28.6 (25.6-32.2) pg MCHC 31.7 L (32.2-35.5) g/dl RDW Std Deviation 43.9 (36.4-46.3) fL Plt Count 174 L (182-369) K/mm3 MPV 10.1 (9.4-12.3) fl Neut % (Auto) 80.1 H (34.0-71.1) % Lymph % (Auto) 8.8 L (19.3-51.7) % Jennings % (Auto) 10.7 (4.7-12.5) % Eos % (Auto) 0.2 L (0.7-5.8) Baso % (Auto) 0.1 (0.1-1.2) % Neut # (Auto) 7.40 H (1.56-6.13) K/mm3 Lymph # (Auto) 0.81 L (1.18-3.74) K/mm3 Jennings # (Auto) 0.99 H (0.24-0.36) K/mm3 Eos # (Auto) 0.02 L (0.04-0.36) K/mm3 Baso # (Auto) 0.01 (0.01-0.08) K/mm3 Manual Slide Review Abnormal smear Sodium 133 L (136-145) mEq/L Potassium 4.1 (3.5-5.1) mEq/L Chloride 97 L (98-107) mEq/L Carbon Dioxide 28 (21-32) mEq/L Anion Gap 12.1 (5-15) BUN 12 (7-18) mg/dL Creatinine 0.7 (0.55-1.02) mg/dL Est Cr Clr Drug Dosing 47.56 mL/min Estimated GFR (MDRD) > 60 (>60) mL/min BUN/Creatinine Ratio 17.1 (14-18) Glucose 138 H (83-115) mg/dL Calcium 8.5 (8.5-10.1) mg/dL Magnesium 1.8 (1.8-2.4) mg/dl Total Bilirubin 0.6 (0.2-1.0) mg/dL AST 22 (15-37) U/L ALT 22 (14-59) U/L Alkaline Phosphatase 87 (46-116) U/L Total Protein 6.1 L (6.4-8.2) g/dl Albumin 2.6 L (3.4-5.0) g/dl Globulin 3.5 gm/dL Albumin/Globulin Ratio 0.7 L (1-2) Result Diagrams: 09/06/20 06:22 09/06/20 06:22 Sepsis Event Note - Evaluation Sepsis Screening Result: No Definite Risk - Focused Exam Vital Signs: Vital Signs Temp Pulse Resp BP Pulse Ox 09/06/20 09:09 70 119/57 L 09/06/20 08:00 97 09/06/20 07:35 97.9 F 70 18 119/57 L 97 09/06/20 04:44 98.1 F 70 16 149/56 H 93 L - Problem List & Annotations (1) Fall SNOMED Code(s): 2897240, 791516178 Code(s): W19.XXXA - UNSPECIFIED FALL, INITIAL ENCOUNTER Status: Acute Priority: High Current Visit: Yes Qualifiers: Encounter type: initial encounter Qualified Code(s): W19.XXXA - Unspecified fall, initial encounter (2) Hip fracture, left SNOMED Code(s): 385732344, 33451088702008931 Code(s): S72.002A - FRACTURE OF UNSP PART OF NECK OF LEFT FEMUR, INIT Status: Acute Priority: High Current Visit: Yes Qualifiers: Encounter type: initial encounter Fracture type: closed Qualified Code(s): S72.002A - Fracture of unspecified part of neck of left femur, initial encounter for closed fracture (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 Code(s): I49.3 - VENTRICULAR PREMATURE DEPOLARIZATION Status: Chronic Priority: Medium Current Visit: Yes (4) Contusion of head SNOMED Code(s): 655120134 Code(s): S00.93XA - CONTUSION OF UNSPECIFIED PART OF HEAD, INITIAL ENCOUNTER Status: Acute Priority: High Current Visit: Yes Qualifiers: Encounter type: initial encounter Contusion of head detail: scalp Qualified Code(s): S00.03XA - Contusion of scalp, initial encounter (5) HTN (hypertension) SNOMED Code(s): 57728931 Code(s): I10 - ESSENTIAL (PRIMARY) HYPERTENSION Status: Chronic Priority: Medium Current Visit: No Qualifiers: Hypertension type: unspecified Qualified Code(s): I10 - Essential (primary) hypertension (6) HLD (hyperlipidemia) SNOMED Code(s): 86045905 Code(s): E78.5 - HYPERLIPIDEMIA, UNSPECIFIED Status: Chronic Priority: Low Current Visit: No Qualifiers: Hyperlipidemia type: unspecified Qualified Code(s): E78.5 - Hyperlipidemia, unspecified (7) Diastolic dysfunction SNOMED Code(s): 6959001 Code(s): I51.89 - OTHER ILL-DEFINED HEART DISEASES Status: Chronic Priority: Medium Current Visit: Yes (8) Bradycardia SNOMED Code(s): 42157257 Code(s): R00.1 - BRADYCARDIA, UNSPECIFIED Status: Acute Priority: High Current Visit: Yes - Problem List Review Problem List Initiated/Reviewed/Updated: Yes - My Orders Last 24 Hours: My Active Orders 09/05/20 Lunch Heart Healthy Diet [DIET] 09/06/20 08:08 Up With Assistance [RC] ASDIRECTED 09/06/20 08:18 Communication Order [RC] ASDIRECTED 09/06/20 09:00 Enoxaparin [Lovenox] 40 mg SUBCUT DAILY 09/06/20 10:56 Magnesium Sulfate/Water [Magnesium Sulfate in Water 2 GM/50 ML] 2 gm in 50 ml IV ONETIME 09/07/20 05:11 CBC WITH AUTO DIFF [HEME] AM CMP [COMPREHENSIVE METABOLIC PN,CMP] [CHEM] AM MAGNESIUM [CHEM] AM 09/08/20 05:11 CBC WITH AUTO DIFF [HEME] AM CMP [COMPREHENSIVE METABOLIC PN,CMP] [CHEM] AM MAGNESIUM [CHEM] AM - Assessment Assessment:: Assessment - day of admission - 09/04/20 * 80-year-old female presents to ED after fall at home * Patient reports she tripped while going to the restroom at night * Patient lives alone in her home and has no family in the state * Reports she did hit her head but denies loss of consciousness * Notes pain and edema in right occipital region in ED; resolved prior to admission * Noted to have left leg pain and leg is externally rotated and shortened. * Is on a baby aspirin at night but no other blood thinners * History of HLD, HTN, diastolic dysfunction, frequent PVCs * Twelve-lead EKG in ED shows sinus rhythm at 81 bpm with no signs of ischemia however ventricular bigeminy is noted * Labs in ED: * WBC 13.33 * Hemoglobin 14.1 * Platelet 196 * Neutrophils elevated at 10.70 * Sodium 141 * Potassium 4.0 * Anion gap 18.0 * BUN 22, creatinine 0.8, GFR greater than 60 * Glucose 121 * Bilirubin 0.4 * AST 21, ALT 25, alkaline phosphatase 107 * Troponin less than 0.017 * Albumin 3.4 * INR 1.02 * SARS-CoV-2 RNA negative * Head CT obtained in ED shows senescent change but nothing acute. * Left hip x-ray obtained in ED shows severe degenerative change within both hips and acute and mildly angulated intertrochanteric fracture within the left hip * She is given Dilaudid for pain * Dr. Olivas, orthopedic surgeon, consulted by ED provider * Admitted to medical floor for pain management and planned surgical fixation of left hip fracture; Hopeful for surgery on 09/05/20. 09/05/20 * Plan for surgery today with Dr. Olivas * Reports slept pretty good and pain is controlled. * Echo obtained on 09/04/2020: * 1. Left ventricular ejection fraction, by visual estimation, is 60-65%. * 2. Mild concentric left ventricular hypertrophy. * 3. Normal right ventricular systolic function. * 4. No aortic valve stenosis. * 5. There is mild aortic valve sclerosis without stenosis. * 6. Mild mitral valve regurgitation. * 7. The right ventricular systolic pressure is moderately elevated at 51.8 mmHg. * 8. No regional wall motion abnormalities * Chest x-ray obtained on admission shows findings suspicious for minimal CHF and left-sided atelectasis. Other nonacute findings are also noted. * Labs today: * WBC 8.72. * Hemoglobin 14.0 * Platelet 173 * Neutrophils 6.29 * Sodium 136 * Potassium 3.6 * Carbon oxide 27 * Anion gap 14.6. * BUN 19, Creatinine 0.7, GFR greater than 60 * Glucose 102 * Magnesium 1.8 * Albumin 3.1 * proBNP obtained yesterday is 308 * TSH obtained yesterday is 2.622 * Resume heart healthy diet after surgery * PT/OT ordered for after surgery * Discharge plan will be pending how patient does with PT/OT and if she can arrange family to stay with her. 09/06/20 * Pain in left hip has been controlled with oral meds * Has been up ambulating with nursing and therapies * Patient would like SNF rehab stay at discharge and PT/OT agrees with this plan * Social work working on placement * Discussed VTE prophylaxis at discharge with surgical team and Dr. Ramírez. Will start 325 mg ASA daily at discharge * Labs today: * WBC 9.24. * Hemoglobin 12.4. * Platelet 174. * Neutrophils 7.40. * Sodium 133. * Potassium 4.1. * Chloride 97. * Anion gap 12.1. * BUN 12, creatinine 0.7, GFR greater than 60. * Glucose 138. * Magnesium 1.8. * Bilirubin 0.6. * AST 22, ALT 22, alkaline phosphatase 87. * Albumin 2.6 * Will supplement magnesium 2 g. * Continue current treatment plan including PT/OT pending SNF placement. - Plan Plan:: S/P Left femur intramedullary nailing hip gamma on 09/05/[address] Olivas Fall Hip fracture, left Contusion of head * Routine labs * Consulted Dr. Olivas * SCDs/BRANDEE hose/Lovenox * Famotidine daily * PT/OT * PRN colace * Pain medications as ordered * CM/SW * IS * Up with assistance * Heart healthy diet * 235mg ASA daily at discharge Bradycardia, improved Frequent PVCs HTN (hypertension) HLD (hyperlipidemia) Diastolic dysfunction * Resume/reconcile home medications * Discontinue 50mg Atenolol (substitute for bisoprolol) and start Coreg 6.25mg BID * Telemetry * Obtain old records PCP: Dr. Machado Code status: Full code DVT prophylaxis: SCDs/BRANDEE hose/Lovenox Social: Patient lives at home alone. Has no family in the state. Disposition: Patient admitted to [facility] with telemetry for surgical management of left hip fracture. Patient would like SNF rehab stay and PT/OT agree. SW working on placement
--- NOTE | 2020-09-06 11:36 | PCM48HPAN ---
Post Anesthesia Note - EVALUATION WITHIN 48HRS OF ANESTHETIC Vital Signs in Normal Range: Yes Patient Participated in Evaluation: Yes Respiratory Function Stable: Yes Airway Patent: Yes Cardiovascular Function Stable: Yes Hydration Status Stable: Yes Pain Control Satisfactory: Yes Nausea and Vomiting Control Satisfactory: Yes Mental Status Recovered: Yes Vital Signs: Last Vital Signs Temp 36.6 C 09/06/20 07:35 Pulse 70 09/06/20 09:09 Resp 18 09/06/20 07:35 BP 119/57 L 09/06/20 09:09 Pulse Ox 97 09/06/20 08:00
--- NOTE | 2020-09-06 13:49 | PCM.SURGPN ---
- General Info Date of Service: 09/06/20 POD#: 1 Functional Status: Reports: Pain Controlled, Tolerating Diet, Ambulating, Urinating, Incentive Spirometry - Patient Data Vitals - Most Recent: Last Vital Signs Temp 97.9 F 09/06/20 12:19 Pulse 68 09/06/20 12:19 Resp 18 09/06/20 12:19 BP 122/60 09/06/20 12:19 Pulse Ox 95 09/06/20 12:19 Weight - Most Recent: 131 lb 11.2 oz I&O - Last 24 Hours: Intake & Output 09/05/20 09/06/20 09/06/20 22:59 06:59 14:59 Intake Total 910 1245 120 Output Total 200 800 Balance 710 445 120 Lab Results Last 24 Hrs: Laboratory Results - last 24 hr 09/06/20 09/06/20 Range/Units 06:22 06:22 WBC 9.24 (3.98-10.04) K/mm3 RBC 4.33 (3.98-5.22) M/mm3 Hgb 12.4 D (11.2-15.7) gm/dl Hct 39.1 (34.1-44.9) % MCV 90.3 (79.4-94.8) fl MCH 28.6 (25.6-32.2) pg MCHC 31.7 L (32.2-35.5) g/dl RDW Std Deviation 43.9 (36.4-46.3) fL Plt Count 174 L (182-369) K/mm3 MPV 10.1 (9.4-12.3) fl Neut % (Auto) 80.1 H (34.0-71.1) % Lymph % (Auto) 8.8 L (19.3-51.7) % [place] % (Auto) 10.7 (4.7-12.5) % Eos % (Auto) 0.2 L (0.7-5.8) Baso % (Auto) 0.1 (0.1-1.2) % Neut # (Auto) 7.40 H (1.56-6.13) K/mm3 Lymph # (Auto) 0.81 L (1.18-3.74) K/mm3 [place] # (Auto) 0.99 H (0.24-0.36) K/mm3 Eos # (Auto) 0.02 L (0.04-0.36) K/mm3 Baso # (Auto) 0.01 (0.01-0.08) K/mm3 Manual Slide Review Abnormal smear Sodium 133 L (136-145) mEq/L Potassium 4.1 (3.5-5.1) mEq/L Chloride 97 L (98-107) mEq/L Carbon Dioxide 28 (21-32) mEq/L Anion Gap 12.1 (5-15) BUN 12 (7-18) mg/dL Creatinine 0.7 (0.55-1.02) mg/dL Est Cr Clr Drug Dosing 47.56 mL/min Estimated GFR (MDRD) > 60 (>60) mL/min BUN/Creatinine Ratio 17.1 (14-18) Glucose 138 H (83-115) mg/dL Calcium 8.5 (8.5-10.1) mg/dL Magnesium 1.8 (1.8-2.4) mg/dl Total Bilirubin 0.6 (0.2-1.0) mg/dL AST 22 (15-37) U/L ALT 22 (14-59) U/L Alkaline Phosphatase 87 (46-116) U/L Total Protein 6.1 L (6.4-8.2) g/dl Albumin 2.6 L (3.4-5.0) g/dl Globulin 3.5 gm/dL Albumin/Globulin Ratio 0.7 L (1-2) Med Orders - Current: Current Medications Acetaminophen (Tylenol) 650 mg PO Q4H PRN PRN Reason: Pain (Mild 1-3)/fever Last Admin: 09/05/20 09:26 Dose: 650 mg Documented by: Hydrocodone Bitart/Acetaminophen ([place] 325-5 Mg) 1 tab PO Q4H PRN PRN Reason: Pain (moderate 4-6) Last Admin: 09/06/20 09:16 Dose: 1 tab Documented by: Carvedilol (Coreg) 6.25 mg PO BID COUNT INCLUDES THE [facility] Last Admin: 09/06/20 09:09 Dose: 6.25 mg Documented by: Docusate Sodium (Colace) 100 mg PO BID PRN PRN Reason: Constipation Enoxaparin Sodium (Lovenox) 40 mg SUBCUT DAILY COUNT INCLUDES THE [facility] Last Admin: 09/06/20 09:11 Dose: 40 mg Documented by: Famotidine (Pepcid) 20 mg PO DAILY COUNT INCLUDES THE [facility] Last Admin: 09/06/20 09:09 Dose: 20 mg Documented by: Hydrochlorothiazide (Hydrochlorothiazide) 25 mg PO DAILY COUNT INCLUDES THE [facility] Last Admin: 09/06/20 09:09 Dose: 25 mg Documented by: Hydromorphone HCl (Dilaudid) 0.5 mg IVPUSH Q2H PRN PRN Reason: Pain (severe 7-10) Last Admin: 09/05/20 10:03 Dose: 0.5 mg Documented by: Ondansetron HCl (Zofran) 4 mg IV Q6H PRN PRN Reason: Nausea/Vomiting Simvastatin (Zocor) 10 mg PO DAILY COUNT INCLUDES THE [facility] Last Admin: 09/06/20 09:09 Dose: 10 mg Documented by: Sodium Chloride (Saline Flush) 10 ml FLUSH ASDIRECTED PRN PRN Reason: Keep Vein Open Last Admin: 09/04/20 05:24 Dose: 10 ml Documented by: Discontinued Medications Aspirin (Ecotrin) 325 mg PO BID COUNT INCLUDES THE [facility] Atenolol (Tenormin) 50 mg PO DAILY COUNT INCLUDES THE [facility] Last Admin: 09/04/20 11:14 Dose: 50 mg Documented by: Bupivacaine HCl (Sensorcaine-Mpf 0.25%) Confirm Administered Dose 20 ml .ROUTE .STK-MED ONE Stop: 09/05/20 10:51 Last Admin: 09/05/20 12:55 Dose: 20 ml Documented by: Cefazolin Sodium (Ancef) Confirm Administered Dose 1 gm .ROUTE .STK-MED ONE Stop: 09/05/20 10:59 Ephedrine Sulfate (Ephedrine Sulfate) Confirm Administered Dose 50 mg .ROUTE .STK-MED ONE Stop: 09/05/20 11:57 Fentanyl (Sublimaze) Confirm Administered Dose 100 mcg .ROUTE .STK-MED ONE Stop: 09/05/20 10:48 Glycopyrrolate (Robinul) Confirm Administered Dose 0.4 mg .ROUTE .STK-MED ONE Stop: 09/05/20 11:34 Heparin Sodium (Porcine) (Heparin Sodium) 5,000 units SUBCUT Q8H COUNT INCLUDES THE [facility] Stop: 09/05/20 03:00 Last Admin: 09/05/20 00:39 Dose: 5,000 units Documented by: Hydromorphone HCl (Dilaudid) 0.5 mg IVPUSH ONETIME ONE Stop: 09/04/20 05:14 Last Admin: 09/04/20 05:23 Dose: 0.5 mg Documented by: Hydromorphone HCl (Dilaudid) 0.5 mg IVPUSH ONETIME ONE Stop: 09/04/20 07:09 Last Admin: 09/04/20 07:14 Dose: 0.5 mg Documented by: Lactated Ringer's (Ringers, Lactated) 1,000 mls @ 75 mls/hr IV ASDIRECTED COUNT INCLUDES THE [facility] Stop: 09/04/20 22:19 Last Admin: 09/04/20 10:01 Dose: 75 mls/hr Documented by: Magnesium Sulfate (Magnesium Sulfate In Water 2 Gm/50 Ml) 2 gm in 50 mls @ 25 mls/hr IV ONETIME ONE Stop: 09/05/20 09:59 Last Admin: 09/05/20 08:53 Dose: 25 mls/hr Documented by: Lidocaine HCl (Xylocaine-Mpf 1%) Confirm Administered Dose 4 mls @ as directed .ROUTE .STK-MED ONE Stop: 09/05/20 11:13 Cefazolin Sodium/Dextrose 2 gm (/ Premix) 50 mls @ 100 mls/hr IV Q8H COUNT INCLUDES THE [facility] Stop: 09/06/20 11:29 Last Admin: 09/06/20 11:20 Dose: 100 mls/hr Documented by: Sodium Chloride (Normal Saline) 500 mls @ 50 mls/hr IV ASDIRECTED ONE Stop: 09/06/20 02:44 Last Admin: 09/05/20 16:44 Dose: 50 mls/hr Documented by: Magnesium Sulfate (Magnesium Sulfate In Water 2 Gm/50 Ml) 2 gm in 50 mls @ 25 mls/hr IV ONETIME ONE Stop: 09/06/20 12:55 Last Admin: 09/06/20 11:44 Dose: 25 mls/hr Documented by: Ketamine HCl (Ketalar) Confirm Administered Dose 500 mg .ROUTE .STK-MED ONE Stop: 09/05/20 10:48 Midazolam HCl (Versed 1 Mg/Ml) Confirm Administered Dose 2 mg .ROUTE .STK-MED ONE Stop: 09/05/20 10:48 Miscellaneous Medication (Phenylephrine 1 Mg/10 Ml-Ns) Confirm Administered Dose 1 mg .ROUTE .STK-MED ONE Stop: 09/05/20 12:41 Ondansetron HCl (Zofran) Confirm Administered Dose 4 mg .ROUTE .STK-MED ONE Stop: 09/05/20 11:29 Propofol (Diprivan 20 Ml) Confirm Administered Dose 200 mg .ROUTE .STK-MED ONE Stop: 09/05/20 10:54 - Exam Wound/Incisions: Dressing Dry and Intact General: Alert, Cooperative, No Acute Distress Lungs: Normal Respiratory Effort Extremities: Other (Left thigh soft. Adrienne's negative.) Sepsis Event Note - Evaluation Sepsis Screening Result: No Definite Risk - Focused Exam Vital Signs: Vital Signs Temp Pulse Resp BP Pulse Ox 09/06/20 12:19 97.9 F 68 18 122/60 95 09/06/20 09:09 70 119/57 L 09/06/20 08:00 97 09/06/20 07:35 97.9 F 70 18 119/57 L 97 09/06/20 04:44 98.1 F 70 16 149/56 H 93 L - Problem List Review Problem List Initiated/Reviewed/Updated: Yes - My Orders Last 24 Hours: Active Orders 24 hr Category Date Time Status Antiembolic Devices [RC] PER UNIT ROUTINE Care 09/06/20 11:24 Active Communication Order [RC] ASDIRECTED Care 09/06/20 08:18 Active RT Incentive Spirometry [RC] Q1HWA Care 09/05/20 13:11 Active Up With Assistance [RC] ASDIRECTED Care 09/06/20 08:08 Active OT Evaluation and Treatment [CONS] Routine Cons 09/05/20 13:11 Active PT Evaluation and Treatment [CONS] Routine Cons 09/05/20 13:11 Active CBC WITH AUTO DIFF [HEME] AM Lab 09/07/20 05:11 Ordered CBC WITH AUTO DIFF [HEME] AM Lab 09/08/20 05:11 Ordered CMP [COMPREHENSIVE METABOLIC PN,CMP] [CHEM] AM Lab 09/07/20 05:11 Ordered CMP [COMPREHENSIVE METABOLIC PN,CMP] [CHEM] AM Lab 09/08/20 05:11 Ordered MAGNESIUM [CHEM] AM Lab 09/07/20 05:11 Ordered MAGNESIUM [CHEM] AM Lab 09/08/20 05:11 Ordered Enoxaparin [Lovenox] Med 09/06/20 09:00 Active 40 mg SUBCUT DAILY BRANDEE Hose [Antiembolic Hose] [OM.PC] Routine Oth 09/06/20 11:24 Ordered Weight bearing status [OM.PC] Routine Oth 09/05/20 13:11 Ordered Medication Orders Acetaminophen (Tylenol) 650 mg PO Q4H PRN PRN Reason: Pain (Mild 1-3)/fever Last Admin: 09/05/20 09:26 Dose: 650 mg Documented by: Admin: 09/04/20 21:00 Dose: 650 mg Documented by: CESAR Hydrocodone Bitart/Acetaminophen ([place] 325-5 Mg) 1 tab PO Q4H PRN PRN Reason: Pain (moderate 4-6) Last Admin: 09/06/20 09:16 Dose: 1 tab Documented by: Admin: 09/06/20 05:16 Dose: 1 tab Documented by: Admin: 09/05/20 22:20 Dose: 1 tab Documented by: Admin: 09/05/20 17:43 Dose: 1 tab Documented by: Admin: 09/05/20 06:34 Dose: 1 tab Documented by: Admin: 09/05/20 01:24 Dose: 1 tab Documented by: Admin: 09/04/20 18:15 Dose: 1 tab Documented by: Admin: 09/04/20 13:54 Dose: 1 tab Documented by: Admin: 09/04/20 09:57 Dose: 1 tab Documented by: DONYA Carvedilol (Coreg) 6.25 mg PO BID COUNT INCLUDES THE [facility] Last Admin: 09/06/20 09:09 Dose: 6.25 mg Documented by: Admin: 09/05/20 20:57 Dose: 6.25 mg Documented by: Admin: 09/05/20 08:54 Dose: 6.25 mg Documented by: TIANA Docusate Sodium (Colace) 100 mg PO BID PRN PRN Reason: Constipation Enoxaparin Sodium (Lovenox) 40 mg SUBCUT DAILY COUNT INCLUDES THE [facility] Last Admin: 09/06/20 09:11 Dose: 40 mg Documented by: JOSE Famotidine (Pepcid) 20 mg PO DAILY COUNT INCLUDES THE [facility] Last Admin: 09/06/20 09:09 Dose: 20 mg Documented by: Admin: 09/05/20 08:54 Dose: 20 mg Documented by: Admin: 09/04/20 09:59 Dose: 20 mg Documented by: DONYA Hydrochlorothiazide (Hydrochlorothiazide) 25 mg PO DAILY COUNT INCLUDES THE [facility] Last Admin: 09/06/20 09:09 Dose: 25 mg Documented by: Admin: 09/05/20 08:53 Dose: 25 mg Documented by: Admin: 09/04/20 11:16 Dose: 25 mg Documented by: TANESHA Hydromorphone HCl (Dilaudid) 0.5 mg IVPUSH Q2H PRN PRN Reason: Pain (severe 7-10) Last Admin: 09/05/20 10:03 Dose: 0.5 mg Documented by: TIANA Ondansetron HCl (Zofran) 4 mg IV Q6H PRN PRN Reason: Nausea/Vomiting Simvastatin (Zocor) 10 mg PO DAILY COUNT INCLUDES THE [facility] Last Admin: 09/06/20 09:09 Dose: 10 mg Documented by: Admin: 09/05/20 08:55 Dose: 10 mg Documented by: Admin: 09/04/20 11:16 Dose: 10 mg Documented by: TANESHA Sodium Chloride (Saline Flush) 10 ml FLUSH ASDIRECTED PRN PRN Reason: Keep Vein Open Last Admin: 09/04/20 05:24 Dose: 10 ml Documented by: IGOR - Assessment Assessment (Free Text/Narrative):: POD#1 - s/p cephalomedullary nailing for left hip fracture - Plan Plan (Free Text/Narrative):: 1. Pt is on Lovenox for VTE prophylaxis. SCDs and TEDs ordered. 2. Continue with PT and OT. WBAT. 3. Discharge planning. The pt was evaluated by Dr. Olivas today.
[2020-09-07] MEDS: Acetaminophen/HYDROcodone 325-5 MG Tab PO PRN (03:37)
--- NOTE | 2020-09-07 07:46 | PCM.DCSUM1 ---
Discharge Summary - Hospital Course HPI Initial Comments: This is an 80-year-old female who presents to ED on the morning of 09/04/2020 via [place] [facility] after a fall. She had up to use the restroom and fell hitting her head. Denies any loss of consciousness or neck pain but she does have a slight headache and a bump on the right occipital region of her head. She has pain to her left hip and left leg is noted to be externally rotated and shortened. Denies any chest pain, shortness of breath, lia pain, nausea, vomiting. She is on a baby aspirin. She reports she lives alone at home in [place]. She does have several children but all of them live out of [facility]. She is quite active and does work at [employer]. Twelve-lead EKG is obtained showing a sinus rhythm at 81 bpm with ventricular bigeminy. Temp is 97.1. Pulse 77. Respirations 17. Blood pressure elevated at 193/82. Pulse ox 97%. Labs are obtained showing leukocytosis at 13.33. Hemoglobin is 14.1. Platelets are 196. Neutrophils are elevated at 10.70. Sodium is 141. Potassium 4.0. Chloride 102. Carbon oxide 25. Anion gap 18.0. BUN is 22. Creatinine 0.8. GFR greater than 60. Glucose 121. Bilirubin 0.4. AST is 21, ALT 25, alkaline phosphatase 107. Troponin is less than 0.017. Albumin is 3.4. INR is 1.02. SARS-CoV-2 RNA is negative. She is given Dilaudid for pain. Head CT without contrast was obtained showing senescent change but nothing acute. Left hip x-rays obtained showing severe degenerative change within both hips. Acute and mildly angulated intertrochanteric fracture within the left hip is noted. Dr. Olivas, orthopedic surgeon is contacted by the ED provider and plan is for surgical fixation in the next 1 to 2 days. She carries a history of hypertension and hyperlipidemia. She has had her left knee replaced. Primary care provider is Dr. Machado. She subsequent admitted to the medical surgical floor inpatient on telemetry for pain management and planned surgical fixation of her left hip fracture. Diagnosis: Stroke: No - Discharge Data Discharge Date: 09/07/20 (Admit date: 09/04/20) Discharge Disposition: DC/Tfer to [facility] 03 Condition: Good - Referral to Home Health Primary Care Physician: Cinthia Regalado MD - Discharge Diagnosis/Problem(s) (1) Fall SNOMED Code(s): 5744064, 490745166 ICD Code: W19.XXXA - UNSPECIFIED FALL, INITIAL ENCOUNTER Status: Acute Priority: High Current Visit: Yes Qualifiers: Encounter type: initial encounter Qualified Code(s): W19.XXXA - Unspecified fall, initial encounter (2) Hip fracture, left SNOMED Code(s): 345369155, 89700921279288185 ICD Code: S72.002A - FRACTURE OF UNSP PART OF NECK OF LEFT FEMUR, INIT Status: Acute Priority: High Current Visit: Yes Qualifiers: Encounter type: initial encounter Fracture type: closed Qualified Code(s): S72.002A - Fracture of unspecified part of neck of left femur, initial encounter for closed fracture (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 DEPOLARIZATION Status: Chronic Priority: Medium Current Visit: Yes (4) Contusion of head SNOMED Code(s): 058117104 ICD Code: S00.93XA - CONTUSION OF UNSPECIFIED PART OF HEAD, INITIAL ENCOUNTER Status: Acute Priority: High Current Visit: Yes Qualifiers: Encounter type: initial encounter Contusion of head detail: scalp Qualified Code(s): S00.03XA - Contusion of scalp, initial encounter (5) HTN (hypertension) SNOMED Code(s): 02970054 ICD Code: I10 - ESSENTIAL (PRIMARY) HYPERTENSION Status: Chronic Priority: Medium Current Visit: No Qualifiers: Hypertension type: unspecified Qualified Code(s): I10 - Essential (primary) hypertension (6) HLD (hyperlipidemia) SNOMED Code(s): 97062043 ICD Code: E78.5 - HYPERLIPIDEMIA, UNSPECIFIED Status: Chronic Priority: Low Current Visit: No Qualifiers: Hyperlipidemia type: unspecified Qualified Code(s): E78.5 - Hyperlipidemia, unspecified (7) Diastolic dysfunction SNOMED Code(s): 3956147 ICD Code: I51.89 - OTHER ILL-DEFINED HEART DISEASES Status: Chronic Priority: Medium Current Visit: Yes (8) Bradycardia SNOMED Code(s): 89720977 ICD Code: R00.1 - BRADYCARDIA, UNSPECIFIED Status: Acute Priority: High Current Visit: Yes - Patient Summary/Data Operative Procedure(s) Performed: cephallomedullary nailing of left intertrochanteric hip fracture Consults: Consultations 09/04/20 06:42 Consult to Physician [CONS] Stat 09/04/20 08:46 Consult to Case Management/Creative Services Designer [CONS] Routine Consult to Spiritual Care [CONS] Routine 09/05/20 07:15 Consult to Occupational Therapy [OT Evaluation and Treatment] [CONS] Routine PT Evaluation and Treatment [CONS] Routine 09/05/20 13:11 OT Evaluation and Treatment [CONS] Routine PT Evaluation and Treatment [CONS] Routine Labs Pending at D/C: None Recommended Follow-up Testing/Procedures: Follow-up with PCP within 7-10 days of discharge, sooner if needed. -Recommend repeat CBC, CMP, Magnesium at that visit Follow-up with Dr. Olivas, orthopedics, as scheduled. Hospital Course: 80-year-old female admitted on 09/04/2020 after a fall at home. She reports she fell after getting up to use the restroom at night and did hit her head but denied loss of consciousness. In the ED there was noted to be some swelling to her right occipital region and pain but this did improve to resolve prior to admission. Left leg was noted to be externally rotated and shortened and patient was reporting pain. Twelve-lead EKG was obtained in the ED showing a sinus rhythm at 81 bpm with no signs of ischemia however ventricular bigeminy is noted. Patient does have a history of frequent PVCs. Head CT was obtained showing senescent change but nothing acute. Left hip x-ray showed severe degenerative change within both hips and an acute and mildly angulated intertrochanteric fracture within the left hip. Dr. Ashwin guthrie, orthopedic surgeon was consulted in the ED with the plan to take the patient to surgery the next day. On the floor patient was noted to be quite bradycardic and continued to have frequent PVCs. proBNP was obtained and was 3.08 however chest x-ray showed findings suspicious for minimal CHF and left-sided atelectasis. She was given an incentive spirometer and an echo was obtained on 09/04/2020 showin. Left ventricular ejection fraction, by visual estimation, is 60-65%. 2. Mild concentric left ventricular hypertrophy. 3. Normal right ventricular systolic function. 4. No aortic valve stenosis. 5. There is mild aortic valve sclerosis without stenosis. 6. Mild mitral valve regurgitation. 7. The right ventricular systolic pressure is moderately elevated at 51.8 mmHg. 8. No regional wall motion abnormalities. Underwent a left femur intramedullary hip nailing gamma on 09/05/[address] Olivas, orthopedic surgeon and did very well postoperatively. She was not requiring any oxygen. Pain was controlled mostly with p.o. [place]. She was up ambulating with therapies. Although patient was doing quite well she is noted to live alone and has no family in the area. She was also noted to feel quite unsteady on her feet. Therapies were recommending SNF placement and the patient agreed to this for rehab stay. She was ultimately accepted at [facility]. Throughout her stay magnesium was low and was supplemented. Postsurgically she received Lovenox and was transitioned to 325 mg ASA daily at discharge. This plan was discussed with Dr. Ramírez, attending hospitalist and the surgical team. In regards to her bradycardia patient was noted to have heart rate that would drop into the 30s. She was mostly asymptomatic. She is on a combination bisprolol and HCTZ. We do not carry this combination here and she was started on atenolol 50 mg. Her PVCs did appear to improve however patient remained bradycardic. Because of this she was started on Coreg 6.25 mg twice daily. Her regular dose HCTZ was continued. She will be discharged today on a 325 mg p.o. daily aspirin for 35 days. 100 mg p.o. twice daily as needed Colace for constipation, 6.25 mg p.o. twice daily Coreg as noted prior. 25 mg p.o. daily HCTZ, which was a home med but is now separate from the combination med. She will be prescribed 325/5 mg p.o. every 6 hours [place] for moderate to severe pain and 650 mg p.o. every 4 hours as needed Tylenol for more mild pain. She should continue PT/OT while at SNF. She was instructed to continue to utilize her incentive spirometry after discharge. She should continue to ambulate when possible at SNF. Recommend follow-up with primary care provider within 7 to 10 days of discharge, sooner if needed. Recommend recheck CBC, CMP, magnesium, and pay special attention to the patient's heart rate and blood pressure. She should follow-up with Dr. Olivas, orthopedic surgeon as scheduled. [facility] to [facility] today. - Patient Instructions Diet: Usual Diet as Tolerated Activity: Apply Ice, As Tolerated, Elevate Extremity, Full Weight Bearing Driving: Do Not Drive Showering/Bathing: May Shower Wound/Incision Care: Keep Operative Site/Wound Site Clean and Dry, Do NOT Change Dressing Notify Provider of: Fever, Increased Pain, Swelling and Redness, Drainage, Nausea and/or Vomiting Other/Special Instructions: Please get up and moving around EVERY HOUR while awake. This helps to prevent blood clots. Please use your walker and have help with mobility as needed. Take a short walk in your home every hour while awake. Please use the aspirin for blood clot prevention. You could use a medication like Pepcid or Tagamet and a medication like Prilosec or Nexium to protect your stomach while you are using the aspirin. At home, please complete the exercises that you learned after surgery. Schedule for physical therapy. Use the pain medication as needed. The medication may cause drowsiness and constipation. Contact your primary care provider for instructions if you are c onstipated. You may use a stool softener like docusate sodium or Colace 100mg twice daily and/or a laxative like Miralax daily for constipation. Increase your water and fiber intake while you are using the pain medication. Please discontinue use of the prescription pain medication as soon as able. The goal is to use the least amount of prescription pain medication as possible and to discontinue use of the prescription pain medication as soon as possible. Please do not use other medications that may cause drowsiness (other pain medications, anxiety pills, cold medications, sleeping pills, etc) while using the prescription pain medication. Do not use alcohol while using the pain medication. You may use acetaminophen or Tylenol for pain management, however, please ensure you are not using over 4000 mg or 4 grams of acetaminophen per day. At this time, please do not use ibuprofen (Motrin, Advil) or naproxen (Aleve) for pain management as you are using the aspirin. When the aspirin course is completed in 5 weeks, you could use ibuprofen or naproxen for pain management (if this is allowed by your primary care provider). If you can tolerate use of the BRANDEE hose, wear them during the day and remove them at night. Elevate the limb to decrease swelling. Elevating the limb above the level of the heart will be most effective. Elevating the foot higher than the knee will help to decrease swelling in the foot. Place ice to the area often. Place a towel between your skin and the blue pad. Please keep the dressing in place until follow-up. As long as the dressing is sealed and without a hole, the dressing is water resistant and therefore, you may have a shower. Please do not soak that dressing in a tub, pool, whirlpool. Notify the Clinic if the dressing becomes saturated. Increase your protein intake while you are healing. It is normal to have swelling and bruising at the surgical site, as well as above and below the surgical site. If you have diabetes or have been instructed by your primary care provider to monitor your blood sugars, please closely monitor your sugars. Notify your primary care provider of the values. Elevated sugars can increase the risk of infection. If you have questions or concerns, please call [phone] and leave a message for the nurse. Your call will be returned. Follow-up with primary care provider within 7-10 days of discharge, sooner if needed. Should symptoms return or worsen contact your primary care provider or return to the Emergency Department. - Discharge Plan *PRESCRIPTION DRUG MONITORING PROGRAM REVIEWED*: No *COPY OF PRESCRIPTION DRUG MONITORING REPORT IN PATIENT MEI: No Prescriptions/Med Rec: Aspirin 325 mg PO DAILY #35 tablet Docusate Sodium [Colace] 100 mg PO BID PRN #30 cap PRN Reason: Constipation carvediloL [Coreg] 6.25 mg PO BID #40 tablet hydroCHLOROthiazide [Hydrochlorothiazide] 25 mg PO DAILY #20 tablet Acetaminophen/HYDROcodone [[place] 325-5 MG] 1 tab PO Q6H PRN #15 tablet PRN Reason: Pain (Moderate 4-6) Acetaminophen [Tylenol] 650 mg PO Q4H PRN #20 tablet PRN Reason: Pain (Mild 1-3)/fever Home Medications: Home Meds Simvastatin 10 mg PO DAILY 05/22/16 [History] Acetaminophen [Tylenol] 650 mg PO Q4H PRN #20 tablet 09/07/20 [Rx] Acetaminophen/HYDROcodone [[place] 325-5 MG] 1 tab PO Q6H PRN #15 tablet 09/07/20 [Rx] Aspirin 325 mg PO DAILY #35 tablet 09/07/20 [Rx] Docusate Sodium [Colace] 100 mg PO BID PRN #30 cap 09/07/20 [Rx] carvediloL [Coreg] 6.25 mg PO BID #40 tablet 09/07/20 [Rx] hydroCHLOROthiazide [Hydrochlorothiazide] 25 mg PO DAILY #20 tablet 09/07/20 [Rx] Oxygen Therapy Mode: Room Air Patient Handouts: How to Use an Incentive Spirometer Referrals: Benny Olivas MD [Physician] - 09/15/20 11:30 am (Appointment with VIANNEY Lutz on Tuesday, September 15, 2020 at 11:30am. Patient will be receiving a follow-up x-ray at this appointment.) Joseph Morales MD [Physician] - 09/14/20 1:00 pm (Please register at 12:30pm.) - Discharge Summary/Plan Comment DC Time >30 min.: Yes (45 mins ) - General Info Date of Service: 09/07/20 Functional Status: Reports: Pain Controlled, Tolerating Diet, Ambulating, Urinating, Incentive Spirometry. Denies: New Symptoms - Review of Systems General: Reports: Weakness. Denies: Fever, Fatigue, Malaise, Chills HEENT: Reports: No Symptoms. Denies: Headaches, Sore Throat Pulmonary: Reports: No Symptoms. Denies: Shortness of Breath, Cough, Sputum, Wheezing Cardiovascular: Reports: No Symptoms. Denies: Chest Pain, Palpitations, Dyspnea on Exertion, Edema Gastrointestinal: Reports: No Symptoms. Denies: Abdominal Pain, Constipation, Diarrhea, Nausea, Vomiting Genitourinary: Reports: No Symptoms. Denies: Pain Musculoskeletal: Reports: Leg Pain (Left leg pain ) Skin: Reports: No Symptoms. Denies: Cyanosis Neurological: Reports: Difficulty Walking, Weakness, Gait Disturbance. Denies: Confusion Psychiatric: Reports: No Symptoms - Patient Data Vitals - Most Recent: Last Vital Signs Temp 98.1 F 09/07/20 03:49 Pulse 72 09/07/20 03:50 Resp 16 09/07/20 03:49 BP 137/84 09/07/20 03:50 Pulse Ox 97 09/07/20 03:49 Weight - Most Recent: 132 lb 12.8 oz I&O - Last 24 hours: Intake & Output 09/06/20 09/07/20 09/07/20 22:59 06:59 14:59 Intake Total 800 700 Output Total 650 Balance 800 50 Lab Results - Last 24 hrs: Laboratory Results - last 24 hr 09/06/20 09/07/20 09/07/20 Range/Units 06:22 04:57 04:57 WBC 10.00 (3.98-10.04) K/mm3 RBC 4.11 (3.98-5.22) M/mm3 Hgb 11.9 (11.2-15.7) gm/dl Hct 36.9 (34.1-44.9) % MCV 89.8 (79.4-94.8) fl MCH 29.0 (25.6-32.2) pg MCHC 32.2 (32.2-35.5) g/dl RDW Std Deviation 43.6 (36.4-46.3) fL Plt Count 159 L (182-369) K/mm3 MPV 10.5 (9.4-12.3) fl Neut % (Auto) 80.1 H (34.0-71.1) % Lymph % (Auto) 9.8 L (19.3-51.7) % [place] % (Auto) 9.3 (4.7-12.5) % Eos % (Auto) 0.4 L (0.7-5.8) Baso % (Auto) 0.2 (0.1-1.2) % Neut # (Auto) 8.01 H (1.56-6.13) K/mm3 Lymph # (Auto) 0.98 L (1.18-3.74) K/mm3 [place] # (Auto) 0.93 H (0.24-0.36) K/mm3 Eos # (Auto) 0.04 (0.04-0.36) K/mm3 Baso # (Auto) 0.02 (0.01-0.08) K/mm3 Manual Slide Review Abnormal smear Abnormal smear Sodium 134 L (136-145) mEq/L Potassium 3.8 (3.5-5.1) mEq/L Chloride 98 (98-107) mEq/L Carbon Dioxide 28 (21-32) mEq/L Anion Gap 11.8 (5-15) BUN 15 (7-18) mg/dL Creatinine 0.7 (0.55-1.02) mg/dL Est Cr Clr Drug Dosing 47.56 mL/min Estimated GFR (MDRD) > 60 (>60) mL/min BUN/Creatinine Ratio 21.4 H (14-18) Glucose 114 (83-115) mg/dL Calcium 8.6 (8.5-10.1) mg/dL Magnesium 2.0 (1.8-2.4) mg/dl Total Bilirubin 0.7 (0.2-1.0) mg/dL AST 28 (15-37) U/L ALT 20 (14-59) U/L Alkaline Phosphatase 85 (46-116) U/L Total Protein 6.2 L (6.4-8.2) g/dl Albumin 2.5 L (3.4-5.0) g/dl Globulin 3.7 gm/dL Albumin/Globulin Ratio 0.7 L (1-2) Med Orders - Current: Current Medications Acetaminophen (Tylenol) 650 mg PO Q4H PRN PRN Reason: Pain (Mild 1-3)/fever Last Admin: 09/05/20 09:26 Dose: 650 mg Documented by: Hydrocodone Bitart/Acetaminophen ([place] 325-5 Mg) 1 tab PO Q4H PRN PRN Reason: Pain (moderate 4-6) Last Admin: 09/07/20 03:37 Dose: 1 tab Documented by: Carvedilol (Coreg) 6.25 mg PO BID [facility] Last Admin: 09/06/20 21:46 Dose: 6.25 mg Documented by: Docusate Sodium (Colace) 100 mg PO BID PRN PRN Reason: Constipation Last Admin: 09/07/20 03:37 Dose: 100 mg Documented by: Enoxaparin Sodium (Lovenox) 40 mg SUBCUT DAILY [facility] Last Admin: 09/06/20 09:11 Dose: 40 mg Documented by: Famotidine (Pepcid) 20 mg PO DAILY [facility] Last Admin: 09/06/20 09:09 Dose: 20 mg Documented by: Hydrochlorothiazide (Hydrochlorothiazide) 25 mg PO DAILY [facility] Last Admin: 09/06/20 09:09 Dose: 25 mg Documented by: Hydromorphone HCl (Dilaudid) 0.5 mg IVPUSH Q2H PRN PRN Reason: Pain (severe 7-10) Last Admin: 09/05/20 10:03 Dose: 0.5 mg Documented by: Ondansetron HCl (Zofran) 4 mg IV Q6H PRN PRN Reason: Nausea/Vomiting Simvastatin (Zocor) 10 mg PO DAILY [facility] Last Admin: 09/06/20 09:09 Dose: 10 mg Documented by: Sodium Chloride (Saline Flush) 10 ml FLUSH ASDIRECTED PRN PRN Reason: Keep Vein Open Last Admin: 09/04/20 05:24 Dose: 10 ml Documented by: Discontinued Medications Aspirin (Ecotrin) 325 mg PO BID [facility] Atenolol (Tenormin) 50 mg PO DAILY [facility] Last Admin: 09/04/20 11:14 Dose: 50 mg Documented by: Bupivacaine HCl (Sensorcaine-Mpf 0.25%) Confirm Administered Dose 20 ml .ROUTE .STK-MED ONE Stop: 09/05/20 10:51 Last Admin: 09/05/20 12:55 Dose: 20 ml Documented by: Cefazolin Sodium (Ancef) Confirm Administered Dose 1 gm .ROUTE .STK-MED ONE Stop: 09/05/20 10:59 Ephedrine Sulfate (Ephedrine Sulfate) Confirm Administered Dose 50 mg .ROUTE .S TK-MED ONE Stop: 09/05/20 11:57 Fentanyl (Sublimaze) Confirm Administered Dose 100 mcg .ROUTE .STK-MED ONE Stop: 09/05/20 10:48 Glycopyrrolate (Robinul) Confirm Administered Dose 0.4 mg .ROUTE .STK-MED ONE Stop: 09/05/20 11:34 Heparin Sodium (Porcine) (Heparin Sodium) 5,000 units SUBCUT Q8H [facility] Stop: 09/05/20 03:00 Last Admin: 09/05/20 00:39 Dose: 5,000 units Documented by: Hydromorphone HCl (Dilaudid) 0.5 mg IVPUSH ONETIME ONE Stop: 09/04/20 05:14 Last Admin: 09/04/20 05:23 Dose: 0.5 mg Documented by: Hydromorphone HCl (Dilaudid) 0.5 mg IVPUSH ONETIME ONE Stop: 09/04/20 07:09 Last Admin: 09/04/20 07:14 Dose: 0.5 mg Documented by: Lactated Ringer's (Ringers, Lactated) 1,000 mls @ 75 mls/hr IV ASDIRECTED [facility] Stop: 09/04/20 22:19 Last Admin: 09/04/20 10:01 Dose: 75 mls/hr Documented by: Magnesium Sulfate (Magnesium Sulfate In Water 2 Gm/50 Ml) 2 gm in 50 mls @ 25 mls/hr IV ONETIME ONE Stop: 09/05/20 09:59 Last Admin: 09/05/20 08:53 Dose: 25 mls/hr Documented by: Lidocaine HCl (Xylocaine-Mpf 1%) Confirm Administered Dose 4 mls @ as directed .ROUTE .STK-MED ONE Stop: 09/05/20 11:13 Cefazolin Sodium/Dextrose 2 gm (/ Premix) 50 mls @ 100 mls/hr IV Q8H [facility] Stop: 09/06/20 11:29 Last Admin: 09/06/20 11:20 Dose: 100 mls/hr Documented by: Sodium Chloride (Normal Saline) 500 mls @ 50 mls/hr IV ASDIRECTED ONE Stop: 09/06/20 02:44 Last Admin: 09/05/20 16:44 Dose: 50 mls/hr Documented by: Magnesium Sulfate (Magnesium Sulfate In Water 2 Gm/50 Ml) 2 gm in 50 mls @ 25 mls/hr IV ONETIME ONE Stop: 09/06/20 12:55 Last Admin: 09/06/20 11:44 Dose: 25 mls/hr Documented by: Ketamine HCl (Ketalar) Confirm Administered Dose 500 mg .ROUTE .STK-MED ONE Stop: 09/05/20 10:48 Midazolam HCl (Versed 1 Mg/Ml) Confirm Administered Dose 2 mg .ROUTE .STK-MED ONE Stop: 09/05/20 10:48 Miscellaneous Medication (Phenylephrine 1 Mg/10 Ml-Ns) Confirm Administered Dose 1 mg .ROUTE .STK-MED ONE Stop: 09/05/20 12:41 Ondansetron HCl (Zofran) Confirm Administered Dose 4 mg .ROUTE .STK-MED ONE Stop: 09/05/20 11:29 Propofol (Diprivan 20 Ml) Confirm Administered Dose 200 mg .ROUTE .STK-MED ONE Stop: 09/05/20 10:54 - Exam Quality Assessment: Reports: DVT Prophylaxis. Denies: Supplemental Oxygen, Urine Catheter General: Reports: Alert, Oriented, Cooperative, No Acute Distress HEENT: Reports: Pupils Equal, Pupils Reactive, Mucous Membr. Moist/[place] Neck: Reports: Supple, Trachea Midline Lungs: Reports: Clear to Auscultation, Normal Respiratory Effort Cardiovascular: Reports: Regular Rate, Regular Rhythm, Other (PVCs ) GI/Abdominal Exam: Normal Bowel Sounds, Soft, Non-Tender, No Distention (Female) Exam: Deferred Rectal (Female) Exam: Deferred Back Exam: Reports: Normal Inspection, Full Range of Motion Extremities: No Pedal Edema, Normal Capillary Refill, Leg Pain (Left ), Limited Range of Motion, Other (Bandage in place on left leg. Cooling pack in place. ) Skin: Reports: Warm, Dry, Intact Wound/Incisions: Reports: Dressing Dry and Intact Neurological: Reports: No New Focal Deficit Psy/Mental Status: Reports: Alert, Normal Affect, Normal Mood
[2020-09-07 08:19] VITALS: BP 147/63; PULSE 71
[2020-09-07] MEDS: Hydrochlorothiazide 25 MG Tab PO SCH (08:50)
[2020-09-07] MEDS: Carvedilol 6.25 MG Tab PO SCH (08:51)
[2020-09-07] MEDS: Famotidine 20 MG Tab PO SCH (08:51)
[2020-09-07] MEDS: Simvastatin 10 MG Tab PO SCH (08:52)
[2020-09-07] MEDS: Enoxaparin 40 MG/0.4 ML Syringe SUBCUT SCH (08:52)
--- NOTE | 2020-09-18 08:21 | OR ---
DATE OF OPERATION: 09/05/2020 SURGEON: Benny Olivas MD OPERATION PERFORMED: Cephalomedullary nailing of left intertrochanteric hip fracture. PREOPERATIVE DIAGNOSIS: Left intertrochanteric hip fracture. POSTOPERATIVE DIAGNOSIS: Left intertrochanteric hip fracture. ANESTHESIA: MAC with spinal. ANESTHESIA PROVIDER: Mariaelena Fernandes. HOUSEKEEPER/LAUNDRY ASSISTANT: Thais Nunez PA-C ESTIMATED BLOOD LOSS: 50 mL. COMPLICATIONS: None. CONDITION: Stable. DESCRIPTION OF PROCEDURE: The patient was identified in the preoperative holding area. Proper site was marked and identified by surgeon. The patient was taken back to the operative theater, where after adequate anesthesia, the patient was placed on the traction table. The patient's bilateral lower extremities were placed in the traction boots. The PEG was then placed and well padded. The right lower extremity then was placed in a dependent position with no gross traction applied. Left lower extremity had gross traction applied which was placed in a cross adducted position making sure the patella was parallel with the floor. At this time, left hip was then sterilely prepped and draped in the usual sterile fashion. OR time-out was performed. The patient received 2 g IV Ancef. The patient had a reduction done under C-arm fluoroscopy showing anatomic reduction of the intertrochanteric hip fracture of the left hip. Superior incision to the greater trochanter was made. Guide pin was placed in a center-center position at the tip of the greater trochanter. Opening reamer for the Leroy short gamma nail was then placed. A short gamma nail was then placed and found to be in adequate position. I did look distally making sure we did not propagate the fracture distally in the femoral shaft. At this time, a guide pin was then placed up into the head and neck in a center-center position. The tip-apex distance was found to be good. The step reamer was then utilized for a 90 mm lag screw. The lag screw was then placed and she was found to have adequate compression of the fracture with anatomic reduction on both AP and lateral views of the hip. Next, utilizing the arm for the nail, I was able to place a static locking screw distally. The apparatus was then removed. Final C-arm fluoroscopy films showed the short cephalomedullary nail to be in anatomic position with anatomic reduction on both AP and lateral views. At this time, adequate saline was irrigated through all incisions. 0 Vicryl was used for closure of the gluteal fascia, 2-0 Vicryl was used subcutaneously, and finesse were used for closure of the skin. The patient tolerated the procedure well and was sent to PACU in stable condition. PAPA /[id number]
== END 2020-09-07 11:03 | DRG 482 ==
LOC: JD.ED 05:01 → JD.MS 07:45 → UNDOADMIN 07:45
PROVIDERS: ADMIT Internal Medicine; ATTEND Internal Medicine
PROC: 0QS736Z Reposition Left Upper Femur with Intramedullary Internal Fixation Device, Percutaneous Approach (ICD-10-PCS; principal; 2020-09-05)
DX: S72.002A Fracture of unspecified part of neck of left femur, initial encounter for closed fracture (principal); S72.142A Displaced intertrochanteric fracture of left femur, initial encounter for closed fracture; Z20.822 Contact with and (suspected) exposure to COVID-19; W19.XXXA Unspecified fall, initial encounter; E78.00 Pure hypercholesterolemia, unspecified; I49.3 Ventricular premature depolarization; I10 Essential (primary) hypertension; S00.03XA Contusion of scalp, initial encounter; E78.5 Hyperlipidemia, unspecified; I11.0 Hypertensive heart disease with heart failure; I50.9 Heart failure, unspecified; H54.7 Unspecified visual loss; Z96.659 Presence of unspecified artificial knee joint; Z79.899 Other long term (current) drug therapy; W01.10XA Fall on same level from slipping, tripping and stumbling with subsequent striking against unspecified object, initial encounter; Y92.002 Bathroom of unspecified non-institutional (private) residence as the place of occurrence of the external cause
CPT/HCPCS: 36415; 70450; 73502; 80053; 84443; 84484; 85025; 85610; 85730; 93005; 96374; 96376; 99285; J1170 ×2; U0002; 01230; 51701; 71045; 71045-26; 73552-26-LT; 73552-LT; 76000; 76000-26; 81001; 83735; 83880; 87641; 93010; 93306; 97110-GP; 97116-GP; 97161-GP; 97165-GO; 97530-GP; 97535-GO; 99222; 99233; 99239; A9270-GY; C1713; C1776; J0690; J1644; J1650; J2250; J2370; J2405; J2704; J3010; J3475; J3490; J7040; J7120

== ENCOUNTER 2020-12-27 13:09 | Emergency (ER) | payer MEDICARE, BC ==
[2020-12-27 13:21] VITALS: BP 155/55
--- NOTE | 2020-12-27 14:13 | EDM.PDOC ---
ED HPI GENERAL MEDICAL PROBLEM - General Chief Complaint: Cardiovascular Problem Stated Complaint: LOW BP/PULSE Time Seen by Provider: 12/27/20 13:30 Source of Information: Reports: Patient, RN Notes Reviewed History Limitations: Reports: No Limitations - History of Present Illness INITIAL COMMENTS - FREE TEXT/NARRATIVE: Patient is an 80-year-old female who presents to the ER for low pulse rate determined by home nursing staff. Patient states that she broke her hip some months ago, and [facility] to [facility], and has been discharged to home, and has had home health nursing staff evaluate her from time to time. They checked on her this morning, and they state that her heart rate was anywhere from mid 30s to 50 bpm. And that her blood pressure was on the low side of normal at 90 systolically. When she presents to the ER, her pulse rate is 70-80, and that her blood pressure has been steadily in the 130 systolically. Patient not complaining of any dizziness lightheadedness, feelings of palpitations in her chest, but her telemetry strip does demonstrate ventricular bigeminy. Patient states over the last week she has felt slightly lethargic, and/or fatigued but is not complaining of any fevers or chills, cough or shortness of breath, nausea/vomiting/diarrhea. Primary care provider is Dr. Machado. - Related Data Allergies Allergy/AdvReac Type Severity Reaction Status Date / Time No Known Allergies Allergy Verified 12/27/20 13:21 Home Meds: Home Meds Simvastatin 10 mg PO BEDTIME 05/22/16 [History] Acetaminophen [Tylenol] 650 mg PO Q4H PRN #20 tablet 09/07/20 [Rx] Aspirin [Aspirin EC] 81 mg PO BEDTIME 12/27/20 [History] Bisoprolol/Hydrochlorothiazide [Bisoprolol-Hctz 5-6.25 mg Tab] 1 each PO DAILY 12/27/20 [History] Past Medical History HEENT History: Reports: Impaired Vision Other HEENT History: Wears glasses Cardiovascular History: Reports: High Cholesterol, Hypertension, Other (See Below) Other Cardiovascular History: diastolic dysfunction, irregular cardiac rhythm, pvcs, varicose vein surgery Respiratory History: Reports: None Gastrointestinal History: Reports: None Genitourinary History: Reports: None INSPECTOR PRECISION ASSEMBLY History: Reports: Musculoskeletal History: Reports: Fracture Neurological History: Reports: None Psychiatric History: Reports: None Endocrine/Metabolic History: Reports: None Hematologic History: Reports: None Immunologic History: Reports: None Oncologic (Cancer) History: Reports: None Dermatologic History: Reports: Other (See Below) Other Dermatologic History: facial rash - Infectious Disease History Infectious Disease History: Reports: None - Past Surgical History Cardiovascular Surgical History: Reports: Varicose Musculoskeletal Surgical History: Reports: Carpal Tunnel, Knee Replacement Social & Family History - Family History HEENT: Reports: Impaired Vision, Other (See Below) Other HEENT Family History: mother Cardiac: Reports: Hypertension, Other (See Below) Other Cardiac Family History: mother Musculoskeletal: Reports: Arthritis, Other (See Below) Other Musculoskeletal Family History: mother Endocrine/Metabolic: Reports: Diabetes, type II, Other (See Below) Other Endocrine/Metabolic Family History: mother Dermatologic: Reports: Eczema, Other (See Below) Other Dermatologic Family History: mother - Tobacco Use Tobacco Use Status *Q: Never Tobacco User - Caffeine Use Caffeine Use: Reports: Coffee - Recreational Drug Use Recreational Drug Use: No ED ROS GENERAL - Review of Systems Review Of Systems: Comprehensive ROS is negative, except as noted in HPI. ED EXAM, GENERAL - Physical Exam Exam: See Below Exam Limited By: No Limitations General Appearance: Alert, WD/WN, No Apparent Distress Respiratory/Chest: No Respiratory Distress, Lungs Clear, Normal Breath Sounds, No Accessory Muscle Use, Chest Non-Tender Cardiovascular: Normal Peripheral Pulses, Regular Rate, Rhythm, No Edema Peripheral Pulses: 2+: Radial (L), Radial (R) GI/Abdominal: Normal Bowel Sounds, Soft, Non-Tender, No Distention, No Mass Extremities: Normal Inspection, Normal Capillary Refill Neurological: Alert, Oriented, Normal Cognition, No Motor/Sensory Deficits Psychiatric: Normal Affect, Normal Mood Skin Exam: Warm, Dry, Intact, Normal Color, No Rash #1 Interpretation EKG Date: 12/27/20 Time: 13:16 Rhythm: NSR Rate (Beats/Min): 81 [place]: Normal P-Wave: Present QRS: Normal ST-T: Normal QT: Normal EKG Interpretation Comments: No obvious ischemia or acute ST changes noted, reviewed by myself and Dr. Grullon. He did also appreciate the ventricular bigeminy, Q waves in her inferior leads as well. Course - Vital Signs Last Recorded V/S: Last Vital Signs Temp 97.2 F 12/27/20 13:17 Pulse 34 L 12/27/20 13:17 Resp 16 12/27/20 13:17 BP 155/55 H 12/27/20 13:17 Pulse Ox 97 12/27/20 13:17 - Orders/Labs/Meds Orders: Active Orders 24 hr Category Date Time Status EKG Documentation Completion [RC] STAT Care 12/27/20 13:30 Ordered Holter Monitor 48 Hours [RC] .PRN Care 12/27/20 14:20 Ordered Labs: Laboratory Tests 12/27/20 12/27/20 12/27/20 Range/Units 13:22 13:22 13:22 WBC 8.23 (3.98-10.04) K/mm3 RBC 5.00 (3.98-5.22) M/mm3 Hgb 14.3 D (11.2-15.7) gm/dl Hct 44.5 (34.1-44.9) % MCV 89.0 (79.4-94.8) fl MCH 28.6 (25.6-32.2) pg MCHC 32.1 L (32.2-35.5) g/dl RDW Std Deviation 45.1 (36.4-46.3) fL Plt Count 220 (182-369) K/mm3 MPV 10.7 (9.4-12.3) fl Neut % (Auto) 68.7 (34.0-71.1) % Lymph % (Auto) 19.6 (19.3-51.7) % Major % (Auto) 9.2 (4.7-12.5) % Eos % (Auto) 1.9 (0.7-5.8) Baso % (Auto) 0.5 (0.1-1.2) % Neut # (Auto) 5.65 (1.56-6.13) K/mm3 Lymph # (Auto) 1.61 (1.18-3.74) K/mm3 Major # (Auto) 0.76 H (0.24-0.36) K/mm3 Eos # (Auto) 0.16 (0.04-0.36) K/mm3 Baso # (Auto) 0.04 (0.01-0.08) K/mm3 PT 10.5 (9.7-12.0) SECONDS INR 0.98 APTT 24.4 (21.7-31.4) SECONDS Sodium 142 (136-145) mEq/L Potassium 4.2 (3.5-5.1) mEq/L Chloride 104 (98-107) mEq/L Carbon Dioxide 26 (21-32) mEq/L Anion Gap 16.2 H (5-15) BUN 20 H (7-18) mg/dL Creatinine 0.7 (0.55-1.02) mg/dL Est Cr Clr Drug Dosing 47.56 mL/min Estimated GFR (MDRD) > 60 (>60) mL/min BUN/Creatinine Ratio 28.6 H (14-18) Glucose 98 (70-99) mg/dL Calcium 9.5 (8.5-10.1) mg/dL Magnesium 2.2 (1.8-2.4) mg/dL Total Bilirubin 0.4 (0.2-1.0) mg/dL AST 24 (15-37) U/L ALT 27 (14-59) U/L Alkaline Phosphatase 133 H (46-116) U/L Troponin I < 0.017 (0.00-0.056) ng/mL NT-Pro-B Natriuret Pep (0-450) pg/mL Total Protein 7.4 (6.4-8.2) g/dl Albumin 3.6 (3.4-5.0) g/dl Globulin 3.8 gm/dL Albumin/Globulin Ratio 1.0 (1-2) 12/27/20 Range/Units 13:22 WBC (3.98-10.04) K/mm3 RBC (3.98-5.22) M/mm3 Hgb (11.2-15.7) gm/dl Hct (34.1-44.9) % MCV (79.4-94.8) fl MCH (25.6-32.2) pg MCHC (32.2-35.5) g/dl RDW Std Deviation (36.4-46.3) fL Plt Count (182-369) K/mm3 MPV (9.4-12.3) fl Neut % (Auto) (34.0-71.1) % Lymph % (Auto) (19.3-51.7) % Major % (Auto) (4.7-12.5) % Eos % (Auto) (0.7-5.8) Baso % (Auto) (0.1-1.2) % Neut # (Auto) (1.56-6.13) K/mm3 Lymph # (Auto) (1.18-3.74) K/mm3 Major # (Auto) (0.24-0.36) K/mm3 Eos # (Auto) (0.04-0.36) K/mm3 Baso # (Auto) (0.01-0.08) K/mm3 PT (9.7-12.0) SECONDS INR APTT (21.7-31.4) SECONDS Sodium (136-145) mEq/L Potassium (3.5-5.1) mEq/L Chloride (98-107) mEq/L Carbon Dioxide (21-32) mEq/L Anion Gap (5-15) BUN (7-18) mg/dL Creatinine (0.55-1.02) mg/dL Est Cr Clr Drug Dosing mL/min Estimated GFR (MDRD) (>60) mL/min BUN/Creatinine Ratio (14-18) Glucose (70-99) mg/dL Calcium (8.5-10.1) mg/dL Magnesium (1.8-2.4) mg/dL Total Bilirubin (0.2-1.0) mg/dL AST (15-37) U/L ALT (14-59) U/L Alkaline Phosphatase (46-116) U/L Troponin I (0.00-0.056) ng/mL NT-Pro-B Natriuret Pep 286 (0-450) pg/mL Total Protein (6.4-8.2) g/dl Albumin (3.4-5.0) g/dl Globulin gm/dL Albumin/Globulin Ratio (1-2) - Re-Assessments/Exams Free Text/Narrative Re-Assessment/Exam: 12/27/20 14:09 Patient presents to the ER for her low blood pressure and low heart rate, this seems to have resolved while being in the ER. EKG does demonstrate ventricular bigeminy, no acute ST change or ischemic abnormality appreciated by myself or Dr. Grullon at this time. All other laboratory evaluation appears to be within normal limits as well. Patient does not seem to be overly dehydrated by lab standards. Patient states she is feeling fine now. Dr. Grullon is going to review her rhythm strip for the patient's residential monitor on lead II, to determine if there is any sign of a heart block otherwise plan will be to disc harge the patient home with a Holter monitor and have her follow-up with her regular care provider for ongoing management. 12/27/20 14:20 Dr. Grullon has reviewed the telemetry strips, and does agree that it is just ventricular bigeminy, not heart block. Departure - Departure Time of Disposition: 14:22 Disposition: Home, Self-Care 01 Condition: Good Clinical Impression: Ventricular bigeminy seen on radiation monitor Instructions: Premature Ventricular Contraction Referrals: Cinthia Regalado MD [Primary Care Provider] - Forms: ED Department Discharge Additional Instructions: You were evaluated in the ER today for a reported low heart rate and low blood pressure. When you got to the ER, your heart rate was within normal limits, your blood pressure was also within normal limits. EKG demonstrated ventricular bigeminy, which are couplets of PVCs (premature ventricular contractions). At this time, you have been sent home with a radiation monitor to wear for the next 48 hours continuously to monitor your heart rhythm to make sure there are no underlying electrical abnormalities that may have been missed at today's visit. All other laboratory evaluation demonstrates no acute findings, your chest x-ray was within normal limits, and your EKG again just showed the bigeminy, but no other acute issues that would be concerning for heart attack or otherwise. You will need to follow-up with your provider, Dr. Machado, after the Holter monitor has been returned. Please allow a few business days in order for the harpoon engagement planning operator to read the report and have it sent back to your provider. A good follow-up time would likely be 1 week to 10 days if possible. Do not hesitate to return to the ER at any time however if you develop any sort of dizziness, lightheadedness, increased lethargy or fatigue, or any sort of nausea, low blood pressure. Please try to increase your oral fluid intake to include fluids like water, Gatorade/Powerade, if you drink coffee throughout the day, please try to limit the amount of coffee that you are taking. Do not hesitate to return to the ER at any time if symptoms change or worsen. Sepsis Event Note (ED) - Evaluation Sepsis Screening Result: No Definite Risk - Focused Exam Vital Signs: Vital Signs Temp Pulse Resp BP Pulse Ox 12/27/20 13:17 97.2 F 34 L 16 155/55 H 97 - My Orders Last 24 Hours: My Active Orders 12/27/20 13:30 EKG Documentation Completion [RC] STAT 12/27/20 14:20 Holter Monitor 48 Hours [RC] .PRN - Assessment/Plan Last 24 Hours: My Active Orders 12/27/20 13:30 EKG Documentation Completion [RC] STAT 12/27/20 14:20 Holter Monitor 48 Hours [RC] .PRN
--- NOTE | 2020-12-27 14:15 | CR ---
Chest: Portable view of the chest was obtained. Comparison: Prior chest x-ray of 09/04/20. Heart size is normal. Tortuous thoracic aorta is seen. Slight scarring is noted within the left lung base. Lungs otherwise are clear. Degenerative change is noted within the spine with disc space narrowing and scattered endplate osteophytes. Degenerative change is noted within both shoulders. Impression: 1. Findings as noted above. 2. Nothing acute is appreciated on portable chest x-ray. Diagnostic code #2
[2020-12-27 15:07] VITALS: PULSE 70
== END 2020-12-27 15:05 | disposition home or self-care (01) ==
LOC: JD.ED 13:09
DX: R00.8 Other abnormalities of heart beat (principal); E78.00 Pure hypercholesterolemia, unspecified; I10 Essential (primary) hypertension; Z79.82 Long term (current) use of aspirin; Z79.899 Other long term (current) drug therapy
CPT/HCPCS: 36415; 71045; 71045-26; 80053; 83735; 83880; 84484; 85025; 85610; 85730; 93005; 93010; 93225; 93226; 99283; 99284-25

== ENCOUNTER → 2022-02-21 | Day surgery (SDC) | payer MEDICARE, BC ==
[~2022-02-21] MED LIST changes: +Brimonidine 0.2% Ophth Soln 5 ML Bottle EYELF SCH; +Cefuroxime 10 MG/ML SYRINGE EYERT SCH; -Lactated Ringers 1,000 ML IV SCH; +Lidocaine 1% PF 2 ML SDV INJECT SCH; -Lidocaine 1%/Sod Bicarbonate in NS 8.4% 1 ML Syringe IDERM PRN; +Phenylephrine 2.5% Ophth Soln 2 ML Bot EYELF SCH; +Pilocarpine 4% Ophth Soln 15 ML Bot EYERT SCH; -Sodium Chloride 0.9% 10 ML Syringe FLUSH PRN; +Tropicamide 1% Ophth Soln 15 ML Bottle EYELF SCH
[2022-02-21] MEDS: Brimonidine 0.2% Ophth Soln 5 ML Bottle EYERT SCH ×4 (15:43→17:35)
[2022-02-21] MEDS: Polymyxin B/Trimethoprim 10 ML Bottle EYERT SCH ×3 (15:43→17:35)
[2022-02-21] MEDS: Phenylephrine 2.5% Ophth Soln 2 ML Bot EYERT SCH ×7 (15:50→17:17)
[2022-02-21] MEDS: Tropicamide 1% Ophth Soln 15 ML Bottle EYERT SCH ×6 (15:55→16:40)
[2022-02-21] MEDS: Tetracaine HCl/PF 0.5% 4 ML Bottle EYEBOTH SCH ×4 (16:58→17:22)
[2022-02-21 18:07] VITALS: BP 109/59; PULSE 60
== END ==
LOC: JD.SDS 16:28
PROVIDERS: ATTEND Ophthalmology
DX: H25.811 Combined forms of age-related cataract, right eye (principal); H26.492 Other secondary cataract, left eye; H16.223 Keratoconjunctivitis sicca, not specified as Sjogren's, bilateral; H40.031 Anatomical narrow angle, right eye; I10 Essential (primary) hypertension; M19.90 Unspecified osteoarthritis, unspecified site; E78.00 Pure hypercholesterolemia, unspecified; Z96.649 Presence of unspecified artificial hip joint; Z98.890 Other specified postprocedural states; Z96.1 Presence of intraocular lens; Z79.899 Other long term (current) drug therapy; Z96.659 Presence of unspecified artificial knee joint
CPT/HCPCS: 66821; 66984; J0697; V2632

== ENCOUNTER 2024-01-30 18:06 | Emergency (ER) | payer MEDICARE, BC ==
[2024-01-30] MEDS ORDERED: cefTRIAXone 1 GM Vial IVPUSH ONE (18:44)
[2024-01-30 18:45] LABS: BASOPHILS PERCENT AUTO 0.4 % (0.0-1.0); EOSINOPHILS ABSOLUTE AUTO 0.2 K/mm3 (0.0-0.4); EOSINOPHILS PERCENT AUTO 2.5 % (0.0-6.0); HEMATOCRIT 40.4 % (37.0-47.0); HEMOGLOBIN 12.9 gm/dl (12.0-16.0); IMMATURE GRAN ABSOLUTE AUTO 0.02 K/mm3 (0.00-0.05); IMMATURE GRAN PERCENT AUTO 0.2 % (0.0-0.4); LYMPHOCYTES ABSOLUTE AUTO 1.9 K/mm3 (1.0-4.8); LYMPHOCYTES PERCENT AUTO 23.3 % (24.0-44.0); MEAN CORPUSCULAR HEMOGLOBIN 29.4 pg (28.0-32.0); MEAN CORPUSCULAR HGB CONC 31.9 g/dl (32.0-36.0); MEAN PLATELET VOLUME 10.1 fl (9.4-12.3); MONOCYTES ABSOLUTE AUTO 0.8 K/mm3 (0.0-0.8); MONOCYTES PERCENT AUTO 9.3 % (0.0-8.0); NEUTROPHILS ABSOLUTE AUTO 5.2 K/mm3 (1.8-7.7); NEUTROPHILS PERCENT AUTO 64.3 % (41.0-71.0); PLATELET COUNT,PLT 202 K/mm3 (150-400); RED BLOOD CELL COUNT 4.39 M/mm3 (4.10-5.30); WHITE BLOOD CELL COUNT,WBC 8.03 K/mm3 (3.9-11.3)
[2024-01-30 18:56] LABS: A/G RATIO 0.9 (1-2); ALANINE AMINOTRANSFERASE,ALT 27 U/L (14-59); ALBUMIN 3.4 g/dl (3.4-5.0); ALKALINE PHOSPHATASE 103 U/L (46-116); ANION GAP 10.7 (5-15); ASPARTATE AMNIOTRANSFERASE,AST 29 U/L (15-37); BILIRUBIN TOTAL 0.3 mg/dL (0.2-1.0); BLOOD UREA NITROGEN,BUN 23 mg/dL (7-18); BUN/CREATININE RATIO 28.8 (14-18); CALCIUM 9.1 mg/dL (8.5-10.1); CARBON DIOXIDE,CO2 29 mEq/L (21-32); CHLORIDE,CL 101 mEq/L (98-107); CREATININE 0.8 mg/dL (0.55-1.02); ESTIMATED GFR 73 mL/min (>60); GLUCOSE RANDOM 106 mg/dL (70-99); MAGNESIUM 2.2 mg/dL (1.8-2.4); POTASSIUM,K 3.7 mEq/L (3.5-5.1); PROTEIN TOTAL,TP 7.1 g/dl (6.4-8.2); SODIUM,NA 137 mEq/L (136-145)
[2024-01-30 19:01] LABS: TROPONIN I HIGH SENSITIVITY < 4 pg/mL (<=51)
[2024-01-30] MEDS: cefTRIAXone 1 GM in Sodium Chloride 0.9% 100 ML IV ONE (19:03)
[2024-01-30] MEDS: Sodium Chloride 0.9% 100 ML ONE (19:04)
[2024-01-30] MEDS: Sodium Chloride 0.9% 10 ML Syringe FLUSH ONE (19:04)
[2024-01-30] MEDS: Iopamidol 612 MG/ML 100 ML Bottle IVPUSH ONE (19:30)
[2024-01-30] MEDS: Iopamidol 612 MG/ML 30 ML SDV IVPUSH ONE (19:30)
[2024-01-30] MEDS: Diphtheria,Pertussis(Acell),Tetanus Vaccine 0.5 ML Syringe IM ONE (19:31)
[2024-01-30 20:33] LABS: APPEARANCE,URINE CLEAR (Clear); BILIRUBIN,URINE NEGATIVE (Negative); COLOR,URINE YELLOW (Yellow); GLUCOSE,URINE NEGATIVE (Negative); KETONES,URINE NEGATIVE (Negative); LEUKOCYTE ESTERASE,URINE TRACE (Negative); NITRITE,URINE NEGATIVE (Negative); OCCULT BLOOD,URINE NEGATIVE (Negative); PH,URINE 7.5 (5.0-8.0); PROTEIN,URINE NEGATIVE (Negative); UROBILINOGEN,URINE 0.2 (0.2-1.0)
[2024-01-30 20:48] LABS: BACTERIA,URINE RARE /hpf (FEW); MUCUS,URINE RARE /hpf (FEW); RBC,URINE 0-5 /hpf (0-5); SQUAMOUS EPITHELIAL CELLS,UR 0-5 /hpf (0-5); WBC,URINE 0-5 /hpf (0-5)
[2024-01-30] MEDS: Lidocaine 1% 20 ML MDV INJECT ONE (22:03)
[2024-01-30] MEDS: Lidocaine 1% 20 ML MDV ONE (22:03)
[2024-01-30 23:03] VITALS: BP 151/69; PULSE 55
== END 2024-01-30 22:58 | disposition home or self-care (01) ==
LOC: JD.ED 18:06
DX: S02.31XA Fracture of orbital floor, right side, initial encounter for closed fracture (principal); S00.03XA Contusion of scalp, initial encounter; E78.00 Pure hypercholesterolemia, unspecified; I10 Essential (primary) hypertension; Z79.899 Other long term (current) drug therapy; Z23 Encounter for immunization; Z79.82 Long term (current) use of aspirin; W18.30XA Fall on same level, unspecified, initial encounter
CPT/HCPCS: 12013; 36415; 70450; 70486; 71260; 72125; 74177; 80053; 81001; 83735; 84484; 85025; 87086; 90471; 90715; 93005; 96365; 99284; J0696; J3490; Q9967